=== PATIENT | female | born 1970 | race Caucasian/White ===

== ENCOUNTER 2016-11-27 08:07 | Emergency (ER) | payer BC ==
[2016-11-27 08:28] VITALS: BP 147/114
[2016-11-27] MEDS ORDERED: Haloperidol 5 MG Tab PO ONE (08:40)
[2016-11-27] MEDS ORDERED: LORazepam 1 MG Tab PO ONE (08:40)
--- NOTE | 2016-11-27 09:34 | EDM.PDOCBH ---
ED HPI GENERAL MEDICAL PROBLEM - General Chief Complaint: Behavioral/Psych Stated Complaint: PANIC ATTACK Time Seen by Provider: 11/27/16 08:33 Source of Information: Reports: Patient History Limitations: Reports: No Limitations - History of Present Illness INITIAL COMMENTS - FREE TEXT/NARRATIVE: The patient presents with an anxiety attack. She got up this morning and she was doing good. She had some nightmares through the night. She has a history of nightmares and she will take some benadryl to help her sleep but she did not take any last night. She was getting ready for work when this started. She feels anxious. She is hearing screaming. She is scratching her arms and legs. She is crying. She is not seeing things and she has no thoughts of hurting herself or anyone else. This has never happened to her before. She does have a history of depression and anxiety and she is on celexa 10mg for that. She does not see any one here yet. She just moved here from [place]. Onset: Gradual Duration: Hour(s): Severity: Severe Improves with: Reports: None Worsens with: Reports: None Associated Symptoms: Reports: No Other Symptoms - Related Data Allergies Allergy/AdvReac Type Severity Reaction Status Date / Time No Known Allergies Allergy Verified 11/27/16 08:28 Home Meds: Home Meds Citalopram Hydrobromide [Celexa] 40 mg PO DAILY #30 tablet 11/27/16 [Rx] Citalopram [Celexa] 10 mg PO DAILY 11/27/16 [History] Haloperidol [Haldol] 2 mg PO BEDTIME #5 tab 11/27/16 [Rx] LORazepam [Ativan] 1 mg PO DAILY #5 tablet 11/27/16 [Rx] Past Medical History Musculoskeletal History: Reports: Other (See Below) Other Musculoskeletal History: tarpal tunnel Psychiatric History: Reports: Anxiety, Depression - Past Surgical History GI Surgical History: Reports: Appendectomy, Cholecystectomy Female Surgical History: Reports: Hysterectomy Social & Family History - Tobacco Use Smoking Status *Q: Never Smoker Second Hand Smoke Exposure: No - Caffeine Use Caffeine Use: Reports: None - Recreational Drug Use Recreational Drug Use: No ED ROS GENERAL - Review of Systems Review Of Systems: See Below Constitutional: Reports: No Symptoms HEENT: Reports: No Symptoms Respiratory: Reports: No Symptoms Cardiovascular: Reports: No Symptoms Endocrine: Reports: No Symptoms GI/Abdominal: Reports: No Symptoms : Reports: No Symptoms Musculoskeletal: Reports: No Symptoms Skin: Reports: No Symptoms Neurological: Reports: No Symptoms Psychiatric: Reports: Anxiety ED EXAM, BEHAVIORAL HEALTH - Physical Exam Exam: See Below Exam Limited By: No Limitations General Appearance: Alert, No Apparent Distress Ears: Normal External Exam Nose: Normal Inspection Head: Atraumatic, Normocephalic Neck: Normal Inspection Respiratory/Chest: No Respiratory Distress, Lungs Clear, Normal Breath Sounds Cardiovascular: Regular Rate, Rhythm, No Edema, No Murmur GI/Abdominal: Soft, Non-Tender, No Organomegaly, No Mass Back Exam: Normal Inspection Extremities: Normal Inspection Neurological: Alert, No Motor/Sensory Deficits, Oriented x 3 Psychiatric: Alert, Restless, Tearful COURSE, BEHAVIORAL HEALTH COMP - Course Vital Signs: Last Vital Signs Temp 97.8 F 11/27/16 08:23 Pulse 132 H 11/27/16 08:23 Resp 20 11/27/16 08:23 BP 147/114 H 11/27/16 08:23 Pulse Ox 93 L 11/27/16 08:23 Orders, Labs, Meds: Active Orders 24 hr Category Date Time Status Cardiac Monitoring [RC] . DIRECTED Care 11/27/16 08:39 Active Laboratory Tests 11/27/16 11/27/16 11/27/16 Range/Units 09:25 09:25 09:25 WBC 8.24 (3.98-10.04) K/mm3 RBC 5.29 H (3.98-5.22) M/mm3 Hgb 15.2 (11.2-15.7) gm/L Hct 46.5 H (34.1-44.9) % MCV 87.9 (79.4-94.8) fl MCH 28.7 (25.6-32.2) pg MCHC 32.7 (32.2-35.5) g/dl RDW Std Deviation 42.0 (36.4-46.3) fL Plt Count 215 (182-369) K/mm3 MPV 9.8 (9.4-12.3) fl Neut % (Auto) 68.3 (34.0-71.1) % Lymph % (Auto) 19.5 (19.3-51.7) % [place] % (Auto) 7.3 (4.7-12.5) % Eos % (Auto) 3.8 (0.7-5.8) Baso % (Auto) 0.7 (0.1-1.2) % Neut # (Auto) 5.63 (1.56-6.13) K/mm3 Lymph # (Auto) 1.61 (1.18-3.74) K/mm3 [place] # (Auto) 0.60 H (0.24-0.36) K/mm3 Eos # (Auto) 0.31 (0.04-0.36) K/mm3 Baso # (Auto) 0.06 (0.01-0.08) K/mm3 Sodium 139 (136-145) mEq/L Potassium 3.8 (3.5-5.1) mEq/L Chloride 101 (98-107) mEq/L Carbon Dioxide 32 (21-32) mEq/L Anion Gap 9.8 (5-15) BUN 16 (7-18) mg/dL Creatinine 0.9 (0.55-1.02) mg/dL Est Cr Clr Drug Dosing 75.15 mL/min Estimated GFR (MDRD) > 60 (>60) mL/min BUN/Creatinine Ratio 17.8 (14-18) Glucose 100 (74-106) mg/dL Calcium 9.9 (8.5-10.1) mg/dL Total Bilirubin 0.4 (0.2-1.0) mg/dL AST 18 (15-37) U/L ALT 31 (14-59) U/L Alkaline Phosphatase 94 (46-116) U/L Total Protein 7.7 (6.4-8.2) g/dl Albumin 4.0 (3.4-5.0) g/dl Globulin 3.7 gm/dL Albumin/Globulin Ratio 1.1 (1-2) TSH 3rd Generation 1.863 (0.358-3.74) uIU/mL HCG, Qual Negative (NEGATIVE) Urine Opiates Screen (NEGATIVE) Ur Buprenorphine Scrn (NEGATIVE) Ur Oxycodone Screen (NEGATIVE) Urine Methadone Screen (NEGATIVE) Ur Propoxyphene Screen (NEGATIVE) Ur Barbiturates Screen (NEGATIVE) Ur Tricyclics Screen (NEGATIVE) Ur Phencyclidine Scrn (NEGATIVE) Ur Amphetamine Screen (NEGATIVE) U Methamphetamines Scrn (NEGATIVE) U Benzodiazepines Scrn (NEGATIVE) U Cocaine Metab Screen (NEGATIVE) U Marijuana (THC) Screen (NEGATIVE) Ethyl Alcohol 0.00 (0.00) gm% 11/27/16 Range/Units 09:45 WBC (3.98-10.04) K/mm3 RBC (3.98-5.22) M/mm3 Hgb (11.2-15.7) gm/L Hct (34.1-44.9) % MCV (79.4-94.8) fl MCH (25.6-32.2) pg MCHC (32.2-35.5) g/dl RDW Std Deviation (36.4-46.3) fL Plt Count (182-369) K/mm3 MPV (9.4-12.3) fl Neut % (Auto) (34.0-71.1) % Lymph % (Auto) (19.3-51.7) % [place] % (Auto) (4.7-12.5) % Eos % (Auto) (0.7-5.8) Baso % (Auto) (0.1-1.2) % Neut # (Auto) (1.56-6.13) K/mm3 Lymph # (Auto) (1.18-3.74) K/mm3 [place] # (Auto) (0.24-0.36) K/mm3 Eos # (Auto) (0.04-0.36) K/mm3 Baso # (Auto) (0.01-0.08) K/mm3 Sodium (136-145) mEq/L Potassium (3.5-5.1) mEq/L Chloride (98-107) mEq/L Carbon Dioxide (21-32) mEq/L Anion Gap (5-15) BUN (7-18) mg/dL Creatinine (0.55-1.02) mg/dL Est Cr Clr Drug Dosing mL/min Estimated GFR (MDRD) (>60) mL/min BUN/Creatinine Ratio (14-18) Glucose (74-106) mg/dL Calcium (8.5-10.1) mg/dL Total Bilirubin (0.2-1.0) mg/dL AST (15-37) U/L ALT (14-59) U/L Alkaline Phosphatase (46-116) U/L Total Protein (6.4-8.2) g/dl Albumin (3.4-5.0) g/dl Globulin gm/dL Albumin/Globulin Ratio (1-2) TSH 3rd Generation (0.358-3.74) uIU/mL HCG, Qual (NEGATIVE) Urine Opiates Screen Negative (NEGATIVE) Ur Buprenorphine Scrn Negative (NEGATIVE) Ur Oxycodone Screen Negative (NEGATIVE) Urine Methadone Screen Negative (NEGATIVE) Ur Propoxyphene Screen Negative (NEGATIVE) Ur Barbiturates Screen Negative (NEGATIVE) Ur Tricyclics Screen Negative (NEGATIVE) Ur Phencyclidine Scrn Negative (NEGATIVE) Ur Amphetamine Screen Negative (NEGATIVE) U Methamphetamines Scrn Negative (NEGATIVE) U Benzodiazepines Scrn Negative (NEGATIVE) U Cocaine Metab Screen Negative (NEGATIVE) U Marijuana (THC) Screen Negative (NEGATIVE) Ethyl Alcohol (0.00) gm% Medications Discontinued Medications Generic Name Dose Route Start Last Admin Trade Name Freq PRN Reason Stop Dose Admin Haloperidol 5 mg 11/27/16 08:40 11/27/16 08:48 Haldol PO 11/27/16 08:41 5 mg ONETIME ONE Administration Lorazepam 1 mg 11/27/16 08:40 11/27/16 08:49 Ativan PO 11/27/16 08:41 1 mg ONETIME ONE Administration Re-Assessment/Re-Exam: I ordered haldol 5mg PO and ativan 1mg PO. I will get some labs. She feels much better. Her CBC and CMP look good. Her TSH is normal. Her ETOH and drug screen are negative. I called Dr Doherty our psychiatrist adhesion tester and he recommended to go up with her celexa to 40mg. He also wanted her to be on haldol 2mg daily for 5 days and ativan daily for 5 days. 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 Take the haldol 2mg at night for 5 days. Take ativan 1mg daily for [address] when taking this medication. Please return if you are worse. Follow up with Dr Doherty in 1 week. His number has been provider. - My Orders Last 24 Hours: My Active Orders 11/27/16 08:39 Cardiac Monitoring [RC] . DIRECTED - Assessment/Plan Last 24 Hours: My Active Orders 11/27/16 08:39 Cardiac Monitoring [RC] . DIRECTED
== END 2016-11-27 11:35 | disposition home or self-care (01) ==
LOC: JD.ED 08:07
DX: F43.10 Post-traumatic stress disorder, unspecified (principal); F23 Brief psychotic disorder; F41.9 Anxiety disorder, unspecified; F32.9 Major depressive disorder, single episode, unspecified; Z90.49 Acquired absence of other specified parts of digestive tract; Z79.899 Other long term (current) drug therapy; Z90.710 Acquired absence of both cervix and uterus
CPT/HCPCS: 36415; 80053; 80306; 84443; 84703; 85025; 99284; A9270; G0480; 99283

== ENCOUNTER 2017-05-07 14:05 | Emergency (ER) | payer SELFPAY ==
[2017-05-07 14:20] VITALS: BP 140/105
--- NOTE | 2017-05-07 15:31 | EDM.PDOC ---
ED HPI GENERAL MEDICAL PROBLEM - General Chief Complaint: Chest Pain Stated Complaint: CHEST PAIN Time Seen by Provider: 05/07/17 14:20 Source of Information: Reports: Patient History Limitations: Reports: No Limitations - History of Present Illness INITIAL COMMENTS - FREE TEXT/NARRATIVE: The patient presents with right lower, lateral chest pain that started about 40 minutes prior to arrival. She says is is like a crampy pain. She has some shortness of breath with it. She has no fever or chills now but a few days ago she had some and now she has a dry cough. She says she gets pneumonia easy and she thinks that may be the case. She has some nausea but no vomiting or abdominal pain. She has no history of heart problems. She did not have a gallbladder. Onset: Sudden Duration: Hour(s): (1) Quality: Reports: Other (crampy) Severity: Mild Improves with: Reports: None Worsens with: Reports: None Associated Symptoms: Reports: Chest Pain, Cough, Shortness of Breath. Denies: Confusion, Fever/Chills, Nausea/Vomiting right side under breast/right side and midback Pain Score (Numeric/FACES): 7 - Related Data Allergies Allergy/AdvReac Type Severity Reaction Status Date / Time No Known Allergies Allergy Verified 11/27/16 08:28 Home Meds: Home Meds Venlafaxine [Effexor] 150 mg PO DAILY 05/07/17 [History] Past Medical History Musculoskeletal History: Reports: Other (See Below) Other Musculoskeletal History: carpal tunnel Psychiatric History: Reports: Anxiety, Depression - Past Surgical History GI Surgical History: Reports: Appendectomy, Cholecystectomy Female Surgical History: Reports: Hysterectomy Social & Family History - Family History Family Medical History: Noncontributory - Tobacco Use Smoking Status *Q: Never Smoker Second Hand Smoke Exposure: No - Caffeine Use Caffeine Use: Reports: Coffee, Soda - Recreational Drug Use Recreational Drug Use: No ED ROS GENERAL - Review of Systems Review Of Systems: See Below Constitutional: Reports: No Symptoms HEENT: Reports: No Symptoms Respiratory: Reports: Shortness of Breath Cardiovascular: Reports: Chest Pain Endocrine: Reports: No Symptoms GI/Abdominal: Reports: Nausea. Denies: Abdominal Pain, Vomiting : Reports: No Symptoms Musculoskeletal: Reports: No Symptoms ED EXAM, GENERAL - Physical Exam Exam: See Below Exam Limited By: No Limitations General Appearance: Alert, No Apparent Distress Ears: Normal External Exam Nose: Normal Inspection Head: Atraumatic, Normocephalic Neck: Normal Inspection Respiratory/Chest: No Respiratory Distress, Lungs Clear, Normal Breath Sounds Cardiovascular: Regular Rate, Rhythm, No Edema, No Murmur GI/Abdominal: Soft, Non-Tender, No Organomegaly, No Mass Back Exam: Normal Inspection EKG INTERPRETATION EKG Date: 05/07/17 Time: 14:12 Rhythm: Other (Sinus tachycardia) Rate (Beats/Min): 100 [place]: Normal P-Wave: Present QRS: Normal ST-T: Normal QT: Normal Course - Vital Signs Last Recorded V/S: Last Vital Signs Temp 97.4 F 05/07/17 14:10 Pulse 94 05/07/17 14:10 Resp 20 05/07/17 14:10 BP 140/105 H 05/07/17 14:10 Pulse Ox 94 L 05/07/17 14:10 - Orders/Labs/Meds Orders: Active Orders 24 hr Category Date Time Status EKG Documentation Completion [RC] ASDIRECTED Care 05/07/17 16:56 Active EKG Documentation Completion [RC] STAT Care 05/07/17 14:25 Active EKG 12 Lead [EK] Stat Ther 05/07/17 16:56 Ordered Labs: Laboratory Tests 05/07/17 05/07/17 05/07/17 Range/Units 14:40 14:40 14:40 WBC 9.08 (3.98-10.04) K/mm3 RBC 5.13 (3.98-5.22) M/mm3 Hgb 15.0 (11.2-15.7) gm/L Hct 45.7 H (34.1-44.9) % MCV 89.1 (79.4-94.8) fl MCH 29.2 (25.6-32.2) pg MCHC 32.8 (32.2-35.5) g/dl RDW Std Deviation 44.9 (36.4-46.3) fL Plt Count 223 (182-369) K/mm3 MPV 9.6 (9.4-12.3) fl Neut % (Auto) 62.0 (34.0-71.1) % Lymph % (Auto) 26.3 (19.3-51.7) % [place] % (Auto) 7.6 (4.7-12.5) % Eos % (Auto) 3.0 (0.7-5.8) Baso % (Auto) 0.4 (0.1-1.2) % Neut # (Auto) 5.63 (1.56-6.13) K/mm3 Lymph # (Auto) 2.39 (1.18-3.74) K/mm3 [place] # (Auto) 0.69 H (0.24-0.36) K/mm3 Eos # (Auto) 0.27 (0.04-0.36) K/mm3 Baso # (Auto) 0.04 (0.01-0.08) K/mm3 D-Dimer, Quantitative 0.48 (0.19-0.59) mg/L Sodium 140 (136-145) mEq/L Potassium 3.9 (3.5-5.1) mEq/L Chloride 101 (98-107) mEq/L Carbon Dioxide 30 (21-32) mEq/L Anion Gap 12.9 (5-15) BUN 18 (7-18) mg/dL Creatinine 0.8 (0.55-1.02) mg/dL Est Cr Clr Drug Dosing 83.63 mL/min Estimated GFR (MDRD) > 60 (>60) mL/min BUN/Creatinine Ratio 22.5 H (14-18) Glucose 79 (74-106) mg/dL Calcium 9.6 (8.5-10.1) mg/dL Total Bilirubin 0.2 (0.2-1.0) mg/dL AST 17 (15-37) U/L ALT 33 (14-59) U/L Alkaline Phosphatase 91 (46-116) U/L Troponin I < 0.017 (0.00-0.056) ng/mL C-Reactive Protein 2.3 H* (<1.0) mg/dL Total Protein 8.0 (6.4-8.2) g/dl Albumin 3.8 (3.4-5.0) g/dl Globulin 4.2 gm/dL Albumin/Globulin Ratio 0.9 L (1-2) 05/07/17 Range/Units 17:12 WBC (3.98-10.04) K/mm3 RBC (3.98-5.22) M/mm3 Hgb (11.2-15.7) gm/L Hct (34.1-44.9) % MCV (79.4-94.8) fl MCH (25.6-32.2) pg MCHC (32.2-35.5) g/dl RDW Std Deviation (36.4-46.3) fL Plt Count (182-369) K/mm3 MPV (9.4-12.3) fl Neut % (Auto) (34.0-71.1) % Lymph % (Auto) (19.3-51.7) % [place] % (Auto) (4.7-12.5) % Eos % (Auto) (0.7-5.8) Baso % (Auto) (0.1-1.2) % Neut # (Auto) (1.56-6.13) K/mm3 Lymph # (Auto) (1.18-3.74) K/mm3 [place] # (Auto) (0.24-0.36) K/mm3 Eos # (Auto) (0.04-0.36) K/mm3 Baso # (Auto) (0.01-0.08) K/mm3 D-Dimer, Quantitative (0.19-0.59) mg/L Sodium (136-145) mEq/L Potassium (3.5-5.1) mEq/L Chloride (98-107) mEq/L Carbon Dioxide (21-32) mEq/L Anion Gap (5-15) BUN (7-18) mg/dL Creatinine (0.55-1.02) mg/dL Est Cr Clr Drug Dosing mL/min Estimated GFR (MDRD) (>60) mL/min BUN/Creatinine Ratio (14-18) Glucose (74-106) mg/dL Calcium (8.5-10.1) mg/dL Total Bilirubin (0.2-1.0) mg/dL AST (15-37) U/L ALT (14-59) U/L Alkaline Phosphatase (46-116) U/L Troponin I < 0.017 (0.00-0.056) ng/mL C-Reactive Protein (<1.0) mg/dL Total Protein (6.4-8.2) g/dl Albumin (3.4-5.0) g/dl Globulin gm/dL Albumin/Globulin Ratio (1-2) Meds: Medications Discontinued Medications Generic Name Dose Route Start Last Admin Trade Name Petros PRN Reason Stop Dose Admin Aspirin 324 mg 05/07/17 15:58 05/07/17 16:33 Aspirin PO 05/07/17 15:59 324 mg ONETIME ONE Administration - Re-Assessments/Exams Free Text/Narrative Re-Assessment/Exam: 05/07/17 15:37 I ordered an EKG, CXR, labs and some aspirin. Her EKG shows a sinus tachycardia with no acute changes. Her CXR shows no pneumonia. Her CBC and CMP look good. Her troponin and D-dimer was negative. 05/07/17 17:57 I did a repeat EKG that shows no changes from prior. Her repeat troponin at 3 hours was negative. This appears to be chest wall pain. I will discharge her home. Departure - Departure Time of Disposition: 18:00 Disposition: Home, Self-Care 01 Condition: Good Clinical Impression: Atypical chest pain Referrals: Evy Matthews PA-C [Primary Care Provider] - 1 Week Forms: ED Department Discharge Additional Instructions: Take tylenol or motrin for pain. Please return if you are worse. Follow up with your provider within a week. - My Orders Last 24 Hours: My Active Orders 05/07/17 14:25 EKG Documentation Completion [RC] STAT 05/07/17 16:56 EKG Documentation Completion [RC] ASDIRECTED EKG 12 Lead [EK] Stat - Assessment/Plan Last 24 Hours: My Active Orders 05/07/17 14:25 EKG Documentation Completion [RC] STAT 05/07/17 16:56 EKG Documentation Completion [RC] ASDIRECTED EKG 12 Lead [EK] Stat
[2017-05-07] MEDS ORDERED: Aspirin 81 MG Tab.Chew PO ONE (15:58)
--- NOTE | 2017-05-07 16:00 | CR ---
Chest: Two views of the chest were obtained. Comparison: No prior study. Poor inspiratory effort is seen. Heart size and mediastinum are normal. Lungs are felt to be clear. Bony structures are unremarkable for the patient's age. Surgical clips are seen from prior cholecystectomy. Impression: 1. Limited inspiratory study. Nothing acute is appreciated. Diagnostic code #2
== END 2017-05-07 18:11 | disposition home or self-care (01) ==
LOC: JD.ED 14:05
DX: R07.89 Other chest pain (principal); F32.9 Major depressive disorder, single episode, unspecified; Z79.899 Other long term (current) drug therapy
CPT/HCPCS: 36415; 71046; 80053; 84484; 85025; 85379; 86140; 93005; 99285; A9270; 93010

== ENCOUNTER 2018-12-31 17:06 | Emergency (ER) | payer BC ==
[2018-12-31 17:12] VITALS: BP 172/85; PULSE 94
[2018-12-31] MEDS ORDERED: Sodium Chloride 0.9% 10 ML Syringe FLUSH PRN (17:43)
--- NOTE | 2018-12-31 17:55 | EDM.PDOC ---
ED HPI GENERAL MEDICAL PROBLEM - General Source of Information: Reports: Patient History Limitations: Reports: No Limitations - History of Present Illness Onset: Today, Sudden Duration: Minutes: Associated Symptoms: Reports: Headaches Headache Pain Score (Numeric/FACES): 9 <Peng Pedro - Last Filed: 12/31/18 17:43> - History of Present Illness Location: Reports: Head Quality: Reports: Ache Severity: Moderate Improves with: Reports: None Worsens with: Reports: None Associated Symptoms: Denies: Chest Pain, Cough, Fever/Chills, Nausea/Vomiting, Shortness of Breath <Damien Aldana - Last Filed: 12/31/18 19:18> - General Chief Complaint: Syncope Stated Complaint: [facility] Time Seen by Provider: 12/31/18 17:14 - History of Present Illness INITIAL COMMENTS - FREE TEXT/NARRATIVE: Pt presents to ED today from the dentist's office with complaint of a syncopal episode. Pt has a hx of anxiety, and took an ativan 45 minutes prior to her dentist appointment. Pt was in the dentist chair nearing the end of the procedure when she suddenly lost consciousness. Pt next awoke on the ground and felt very nauseous and had one episode of vomiting. She is unsure of how long she was unconscious. Her complaints upon presentation to ED include fatigue and a headache. Pt has no other complaints at this time. Pt feels that she may have had an anxiety attack during the procedure causing her to pass out. Pt denies personal or family hx of heart problems. No hx of hypertension, diabetes, asthma. She has never had a similar episode in the past. Pt carries history of significant anxiety. (Peng Pedro) - Related Data Allergies Allergy/AdvReac Type Severity Reaction Status Date / Time walnut Allergy Airway Verified 12/31/18 17:13 Tightness Home Meds: Home Meds LORazepam [Ativan] 1 mg PO DAILY PRN 12/31/18 [History] Prazosin HCl [Prazosin] 6 mg PO BEDTIME 12/31/18 [History] Vortioxetine Hydrobromide [Brintellix] 20 mg PO DAILY 12/31/18 [History] traZODone HCl [Trazodone HCl] 100 mg PO BEDTIME 12/31/18 [History] Past Medical History HEENT History: Reports: Impaired Vision Cardiovascular History: Reports: None Respiratory History: Reports: None Gastrointestinal History: Reports: None Genitourinary History: Reports: None 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, Musculoskeletal History: Reports: Other (See Below) Other Musculoskeletal History: carpal tunnel Neurological History: Reports: Concussion, Seizure Psychiatric History: Reports: Anxiety, Depression, PTSD, Other (See Below) Other Psychiatric History: Borderline personality disorder Endocrine/Metabolic History: Reports: Obesity/BMI 30+ Hematologic History: Reports: None Immunologic History: Reports: None Oncologic (Cancer) History: Reports: None Dermatologic History: Reports: None - Infectious Disease History Infectious Disease History: Reports: None - Past Surgical History Head Surgeries/Procedures: Reports: None GI Surgical History: Reports: Appendectomy, Cholecystectomy Female Surgical History: Reports: Hysterectomy Musculoskeletal Surgical History: Reports: Carpal Tunnel Other Musculoskeletal Surgeries/Procedures:: carpal tunnel surgery bilateral hands. <Peng Pedro - Last Filed: 12/31/18 17:43> Social & Family History - Family History Family Medical History: Noncontributory - Tobacco Use Smoking Status *Q: Never Smoker - Caffeine Use Caffeine Use: Reports: Coffee - Recreational Drug Use Recreational Drug Use: No <Peng Pedro - Last Filed: 12/31/18 17:43> ED ROS GENERAL - Review of Systems Review Of Systems: ROS reveals no pertinent complaints other than HPI. <Pneg Pedro - Last Filed: 12/31/18 17:43> - Physical Exam Exam: See Below Exam Limited By: No Limitations General Appearance: Alert, No Apparent Distress Eye Exam: Bilateral Eye: Normal Inspection Ears: Normal External Exam Nose: Normal Inspection Throat/Mouth: Normal Inspection Head Exam: Atraumatic, Normocephalic Neck: Normal Inspection Respiratory/Chest: No Respiratory Distress, Lungs Clear, Normal Breath Sounds, No Accessory Muscle Use Cardiovascular: Normal Peripheral Pulses, Regular Rate, Rhythm, No Edema, No JVD , No Murmur, No Rub GI/Abdominal: Normal Bowel Sounds, Soft, Non-Tender, No Organomegaly Neuro Exam (Abbreviated): Alert, Oriented, CN II-XII Intact, Normal Cognition, No Motor/Sensory Deficits (ds) Extremities: Normal Inspection, Non-Tender, No Pedal Edema Psychiatric: Normal Affect, Normal Mood Skin Exam: Warm, Dry, Intact, Normal Color, No Rash <Peng Pedro - Last Filed: 12/31/18 17:43> EKG INTERPRETATION EKG Date: 12/31/18 Time: 17:54 Rhythm: NSR Rate (Beats/Min): 94 [place]: Normal P-Wave: Present QRS: Normal ST-T: Normal QT: Normal <Damien Aldana A - Last Filed: 12/31/18 19:18> Course <PedroPeng - Last Filed: 12/31/18 17:43> <Damien Aldana - Last Filed: 12/31/18 19:18> - Vital Signs Last Recorded V/S: Last Vital Signs Temp 98.3 F 12/31/18 17:10 Pulse 94 12/31/18 17:10 Resp 16 12/31/18 17:10 BP 172/85 H 12/31/18 17:10 Pulse Ox 92 L 12/31/18 17:10 - Orders/Labs/Meds Orders: Active Orders 24 hr Category Date Time Status Cardiac Monitoring [RC] . DIRECTED Care 12/31/18 17:43 Active EKG Documentation Completion [RC] STAT Care 12/31/18 17:45 Active Peripheral IV Care [RC] . DIRECTED Care 12/31/18 17:45 Active HYDROmorphone [Dilaudid] Med 12/31/18 19:11 Once 0.5 mg IVPUSH ONETIME ONE Sodium Chloride 0.9% [Saline Flush] Med 12/31/18 17:43 Active 10 ml FLUSH ASDIRECTED PRN Peripheral IV Insertion Adult [OM.PC] Stat Oth 12/31/18 17:43 Ordered Medication Orders Sodium Chloride (Saline Flush) 10 ml FLUSH ASDIRECTED PRN PRN Reason: Keep Vein Open Last Admin: 12/31/18 18:03 Dose: 10 ml Labs: Laboratory Tests 12/31/18 12/31/18 Range/Units 18:30 18:30 WBC 7.65 (3.98-10.04) K/mm3 RBC 4.93 (3.98-5.22) M/mm3 Hgb 14.1 (11.2-15.7) gm/L Hct 43.7 (34.1-44.9) % MCV 88.6 (79.4-94.8) fl MCH 28.6 (25.6-32.2) pg MCHC 32.3 (32.2-35.5) g/dl RDW Std Deviation 46.1 (36.4-46.3) fL Plt Count 227 (182-369) K/mm3 MPV 9.4 (9.4-12.3) fl Neut % (Auto) 59.3 (34.0-71.1) % Lymph % (Auto) 23.4 (19.3-51.7) % [place] % (Auto) 11.2 (4.7-12.5) % Eos % (Auto) 5.1 (0.7-5.8) Baso % (Auto) 0.7 (0.1-1.2) % Neut # (Auto) 4.54 (1.56-6.13) K/mm3 Lymph # (Auto) 1.79 (1.18-3.74) K/mm3 [place] # (Auto) 0.86 H (0.24-0.36) K/mm3 Eos # (Auto) 0.39 H (0.04-0.36) K/mm3 Baso # (Auto) 0.05 (0.01-0.08) K/mm3 Sodium 142 (136-145) mEq/L Potassium 3.8 (3.5-5.1) mEq/L Chloride 104 (98-107) mEq/L Carbon Dioxide 29 (21-32) mEq/L Anion Gap 12.8 (5-15) BUN 24 H (7-18) mg/dL Creatinine 0.9 (0.55-1.02) mg/dL Est Cr Clr Drug Dosing 70.78 mL/min Estimated GFR (MDRD) > 60 (>60) mL/min BUN/Creatinine Ratio 26.7 H (14-18) Glucose 87 (74-106) mg/dL Calcium 9.5 (8.5-10.1) mg/dL Total Bilirubin 0.2 (0.2-1.0) mg/dL AST 16 (15-37) U/L ALT 26 (14-59) U/L Alkaline Phosphatase 92 (46-116) U/L Troponin I < 0.017 (0.00-0.056) ng/mL Total Protein 6.9 (6.4-8.2) g/dl Albumin 3.4 (3.4-5.0) g/dl Globulin 3.5 gm/dL Albumin/Globulin Ratio 1.0 (1-2) Meds: Medications Generic Name Dose Route Start Last Admin Trade Name Freq PRN Reason Stop Dose Admin Sodium Chloride 10 ml 12/31/18 17:43 12/31/18 18:03 Saline Flush FLUSH 10 ml ASDIRECTED PRN Administration Keep Vein Open - Re-Assessments/Exams Free Text/Narrative Re-Assessment/Exam: 12/31/18 17:57 Will order labs, EKG, head CT for stroke rule-out. (Peng Pedro) 12/31/18 19:12 I examined the patient myself and I agreed with Peng's assessment and plan. I ordered an EKG, CT of her head and labs. Her EKG shows a NSR with no acute changes. Her CBC and CMP look good. Her troponin is normal. The CT of her head looks good. I will give her some dilaudid for the headache. I feel this may have been the ativan and some anxiety. I will have her follow up with Evy Matthews. 12/31/18 19:16 Her BP did go up but now it is better. (Damien Aldana) Departure <Peng Pedro - Last Filed: 12/31/18 17:43> - Departure Time of Disposition: 19:20 Condition: Good - Discharge Information *PRESCRIPTION DRUG MONITORING PROGRAM REVIEWED*: No *COPY OF PRESCRIPTION DRUG MONITORING REPORT IN PATIENT BALJEET: No <Damien Aldana - Last Filed: 12/31/18 19:18> - Departure Disposition: Home, Self-Care 01 Clinical Impression: Syncope Qualifiers: Syncope type: unspecified Qualified Code(s): R55 - Syncope and collapse Headache Qualifiers: Headache type: unspecified Headache chronicity pattern: acute headache Intractability: not intractable Qualified Code(s): R51 - Headache - Discharge Information Referrals: Evy Matthews PA-C [Primary Care Provider] - 2 Days Forms: ED Department Discharge Additional Instructions: Take your medication as prescribed. Follow up with Evy Matthews within a couple days. Please return if you are worse. - My Orders Last 24 Hours: My Active Orders 12/31/18 17:43 Cardiac Monitoring [RC] . DIRECTED Sodium Chloride 0.9% [Saline Flush] 10 ml FLUSH ASDIRECTED PRN Peripheral IV Insertion Adult [OM.PC] Stat 12/31/18 17:45 EKG Documentation Completion [RC] STAT Peripheral IV Care [RC] . DIRECTED 12/31/18 19:11 HYDROmorphone [Dilaudid] 0.5 mg IVPUSH ONETIME ONE - Assessment/Plan Last 24 Hours: My Active Orders 12/31/18 17:43 Cardiac Monitoring [RC] . DIRECTED Sodium Chloride 0.9% [Saline Flush] 10 ml FLUSH ASDIRECTED PRN Peripheral IV Insertion Adult [OM.PC] Stat 12/31/18 17:45 EKG Documentation Completion [RC] STAT Peripheral IV Care [RC] . DIRECTED 12/31/18 19:11 HYDROmorphone [Dilaudid] 0.5 mg IVPUSH ONETIME ONE
--- NOTE | 2018-12-31 19:02 | CT ---
Head CT Technique: Multiple axial sections through the brain were obtained. Intravenous contrast was not utilized. Comparison: No previous intracranial imaging. Findings: Ventricles along with basal cisterns and sulci over the convexities are within normal limits for the patient's age. No abnormal parenchymal densities are seen. No evidence of intracranial hemorrhage. No midline shift or mass effect is seen. Bone window settings show the visualized paranasal sinuses to show nothing acute. Mastoid sinuses are clear. No acute calvarial abnormality is seen. Impression: 1. Nothing acute is appreciated on noncontrast head CT exam. Diagnostic code #1
[2018-12-31] MEDS ORDERED: HYDROmorphone 0.5 MG/0.5 ML Syringe IVPUSH ONE (19:11)
== END 2018-12-31 19:30 | disposition home or self-care (01) ==
LOC: JD.ED 17:06
DX: R55 Syncope and collapse (principal); R51 Headache; F32.9 Major depressive disorder, single episode, unspecified; F41.9 Anxiety disorder, unspecified; Z91.018 Allergy to other foods; Z79.899 Other long term (current) drug therapy; Z90.49 Acquired absence of other specified parts of digestive tract; Z90.710 Acquired absence of both cervix and uterus; Z68.43 Body mass index [BMI] 50.0-59.9, adult
CPT/HCPCS: 36415; 70450; 80053; 84484; 85025; 93005; 96374; 99284; J1170; 93010; 99283

== ENCOUNTER 2019-06-05 12:40 | Emergency (ER) | payer BC ==
[2019-06-05 12:55] VITALS: BP 157/90; PULSE 81
[2019-06-05] MEDS ORDERED: Ondansetron 4 MG/2 ML SDV IVPUSH ONE (13:11)
[2019-06-05] MEDS ORDERED: Ketorolac 30 MG/ML SDV IVPUSH ONE (13:11)
[2019-06-05] MEDS ORDERED: Sodium Chloride 0.9% 10 ML Syringe FLUSH PRN (13:12)
[2019-06-05] MEDS ORDERED: diphenhydrAMINE 50 MG/ML SDV IVPUSH ONE (13:12)
[2019-06-05] MEDS ORDERED: Sodium Chloride 0.9% 1,000 ML IV SCH (13:15)
--- NOTE | 2019-06-05 13:16 | EDM.PDOC ---
ED HPI GENERAL MEDICAL PROBLEM - General Chief Complaint: Headache Stated Complaint: MIGRAINE Time Seen by Provider: 06/05/19 13:02 Source of Information: Reports: Patient History Limitations: Reports: No Limitations - History of Present Illness INITIAL COMMENTS - FREE TEXT/NARRATIVE: Patient is a 49-year-old female who presents to the ER with complaints of having a migraine headache since Sunday. With this headache, she has been nauseous with no vomiting, her visions been blurred, she does state that she sees flickers of light and has photosensitivity. She also has some ringing in her left ear. She states the pain is located on the left side of her forehead and behind her left ear. Patient states has a history of migraines however it has been probably 20 years since she had one this severe. She gets headaches regularly, however she can usually treat them with Advil or chiropractor adjustment. Patient saw the chiropractor on Sunday for an adjustment, however her symptoms continued after. Denies any recent illnesses. Of note, patient was seen here in December of last year for a headache and a CT scan was done at that time. This was found to be normal. Frontal Headache Pain Score (Numeric/FACES): 7 - Related Data Allergies Allergy/AdvReac Type Severity Reaction Status Date / Time walnut Allergy Airway Verified 06/05/19 12:49 Tightness Home Meds: Home Meds LORazepam [Ativan] 1 mg PO DAILY PRN 12/31/18 [History] Prazosin HCl [Prazosin] 6 mg PO BEDTIME 12/31/18 [History] Vortioxetine Hydrobromide [Brintellix] 20 mg PO DAILY 12/31/18 [History] Ondansetron [Zofran ODT] 4 mg PO Q6H PRN #10 tab.dis 06/05/19 [Rx] Past Medical History HEENT History: Reports: Impaired Vision Cardiovascular History: Reports: None Respiratory History: Reports: None Gastrointestinal History: Reports: None Genitourinary History: Reports: None 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, Musculoskeletal History: Reports: Other (See Below) Other Musculoskeletal History: carpal tunnel Neurological History: Reports: Concussion, Seizure Psychiatric History: Reports: Anxiety, Depression, PTSD, Other (See Below) Other Psychiatric History: Borderline personality disorder Endocrine/Metabolic History: Reports: Obesity/BMI 30+ Hematologic History: Reports: None Immunologic History: Reports: None Oncologic (Cancer) History: Reports: None Dermatologic History: Reports: None - Infectious Disease History Infectious Disease History: Reports: None - Past Surgical History Head Surgeries/Procedures: Reports: None GI Surgical History: Reports: Appendectomy, Cholecystectomy Female Surgical History: Reports: Hysterectomy Musculoskeletal Surgical History: Reports: Carpal Tunnel Other Musculoskeletal Surgeries/Procedures:: carpal tunnel surgery bilateral hands. Social & Family History - Family History Family Medical History: Noncontributory - Tobacco Use Smoking Status *Q: Never Smoker - Caffeine Use Caffeine Use: Reports: Coffee - Recreational Drug Use Recreational Drug Use: No ED ROS GENERAL - Review of Systems Review Of Systems: Comprehensive ROS is negative, except as noted in HPI. - Physical Exam Exam: See Below Exam Limited By: No Limitations General Appearance: Alert, WD/WN, No Apparent Distress Eye Exam: Bilateral Eye: Normal Inspection, PERRL Head Exam: Atraumatic, Normocephalic Respiratory/Chest: No Respiratory Distress, Lungs Clear, Normal Breath Sounds, No Accessory Muscle Use, Chest Non-Tender Cardiovascular: Normal Peripheral Pulses, Regular Rate, Rhythm, No Edema, No Gallop, No JVD, No Murmur, No Rub GI/Abdominal: Normal Bowel Sounds, Soft, Non-Tender, No Organomegaly, No Distention, No Abnormal Bruit, No Mass Neuro Exam (Abbreviated): Alert, Oriented, CN II-XII Intact, Normal Cognition, Normal Gait, Normal Reflexes, No Motor/Sensory Deficits Psychiatric: Normal Affect, Normal Mood Skin Exam: Warm, Dry, Intact, Normal Color, No Rash Course - Vital Signs Last Recorded V/S: Last Vital Signs Temp 98.2 F 06/05/19 12:50 Pulse 81 06/05/19 12:50 Resp 16 06/05/19 12:50 BP 157/90 H 06/05/19 12:50 Pulse Ox 93 L 06/05/19 12:50 - Orders/Labs/Meds Orders: Active Orders 24 hr Category Date Time Status Peripheral IV Care [RC] . DIRECTED Care 06/05/19 13:12 Active Sodium Chloride 0.9% [Normal Saline] 1,000 ml Med 06/05/19 13:15 Active IV ASDIRECTED Sodium Chloride 0.9% [Saline Flush] Med 06/05/19 13:12 Active 10 ml FLUSH ASDIRECTED PRN Peripheral IV Insertion Adult [OM.PC] Stat Oth 06/05/19 13:12 Ordered Medication Orders Sodium Chloride (Normal Saline) 1,000 mls @ 999 mls/hr IV ASDIRECTED JOSE Last Admin: 06/05/19 13:50 Dose: 999 mls/hr Sodium Chloride (Saline Flush) 10 ml FLUSH ASDIRECTED PRN PRN Reason: Keep Vein Open Last Admin: 06/05/19 13:50 Dose: 10 ml Labs: Laboratory Tests 06/05/19 06/05/19 Range/Units 13:48 13:48 WBC 6.98 (3.98-10.04) K/mm3 RBC 5.20 (3.98-5.22) M/mm3 Hgb 15.1 (11.2-15.7) gm/dl Hct 47.4 H (34.1-44.9) % MCV 91.2 (79.4-94.8) fl MCH 29.0 (25.6-32.2) pg MCHC 31.9 L (32.2-35.5) g/dl RDW Std Deviation 47.5 H (36.4-46.3) fL Plt Count 220 (182-369) K/mm3 MPV 9.5 (9.4-12.3) fl Neut % (Auto) 60.9 (34.0-71.1) % Lymph % (Auto) 22.1 (19.3-51.7) % [place] % (Auto) 10.7 (4.7-12.5) % Eos % (Auto) 5.0 (0.7-5.8) Baso % (Auto) 0.6 (0.1-1.2) % Neut # (Auto) 4.25 (1.56-6.13) K/mm3 Lymph # (Auto) 1.54 (1.18-3.74) K/mm3 [place] # (Auto) 0.75 H (0.24-0.36) K/mm3 Eos # (Auto) 0.35 (0.04-0.36) K/mm3 Baso # (Auto) 0.04 (0.01-0.08) K/mm3 Sodium 141 (136-145) mEq/L Potassium 4.2 (3.5-5.1) mEq/L Chloride 103 (98-107) mEq/L Carbon Dioxide 30 (21-32) mEq/L Anion Gap 12.2 (5-15) BUN 22 H (7-18) mg/dL Creatinine 0.9 (0.55-1.02) mg/dL Est Cr Clr Drug Dosing 75.44 mL/min Estimated GFR (MDRD) > 60 (>60) mL/min BUN/Creatinine Ratio 24.4 H (14-18) Glucose 94 (74-106) mg/dL Calcium 9.4 (8.5-10.1) mg/dL Total Bilirubin 0.3 (0.2-1.0) mg/dL AST 17 (15-37) U/L ALT 33 (14-59) U/L Alkaline Phosphatase 96 (46-116) U/L Total Protein 7.2 (6.4-8.2) g/dl Albumin 3.5 (3.4-5.0) g/dl Globulin 3.7 gm/dL Albumin/Globulin Ratio 1.0 (1-2) Meds: Medications Generic Name Dose Route Start Last Admin Trade Name Freq PRN Reason Stop Dose Admin Sodium Chloride 1,000 mls @ 999 mls/hr 06/05/19 13:15 06/05/19 13:50 Normal Saline IV 999 mls/hr ASDIRECTED JOSE Administration Sodium Chloride 10 ml 06/05/19 13:12 06/05/19 13:50 Saline Flush FLUSH 10 ml ASDIRECTED PRN Administration Keep Vein Open Discontinued Medications Generic Name Dose Route Start Last Admin Trade Name Freq PRN Reason Stop Dose Admin Diphenhydramine HCl 25 mg 06/05/19 13:12 06/05/19 13:50 Benadryl IVPUSH 06/05/19 13:13 25 mg ONETIME ONE Administration Hydromorphone HCl 0.5 mg 06/05/19 14:30 06/05/19 15:09 Dilaudid IVPUSH 06/05/19 14:31 0.5 mg ONETIME ONE Administration Ketorolac Tromethamine 30 mg 06/05/19 13:11 06/05/19 13:52 Toradol IVPUSH 06/05/19 13:12 30 mg ONETIME ONE Administration Ondansetron HCl 4 mg 06/05/19 13:11 06/05/19 13:51 Zofran IVPUSH 06/05/19 13:12 4 mg ONETIME ONE Administration - Re-Assessments/Exams Free Text/Narrative Re-Assessment/Exam: 06/05/19 14:31 Patient is having some relief from the medications given thus far. States that her nausea is improved and that her pain has "let up some "but is still present. I will order Dilaudid 0.5 mg IV to be given now. 06/05/19 15:32 Patient states that she is feeling much better after the medications given. I will discharge her home with instructions to rest for the rest of the day. I will send a prescription for Zofran over to [place] [facility]. Discharge instructions as documented. Departure - Departure Time of Disposition: 15:32 Disposition: Home, Self-Care 01 Condition: Fair Clinical Impression: Migraine - Discharge Information *PRESCRIPTION DRUG MONITORING PROGRAM REVIEWED*: No *COPY OF PRESCRIPTION DRUG MONITORING REPORT IN PATIENT BALJEET: No Prescriptions: Ondansetron [Zofran ODT] 4 mg PO Q6H PRN #10 tab.dis PRN Reason: Nausea Instructions: Migraine Headache, [id number] Referrals: Evy Matthews PA-C [Primary Care Provider] - Forms: ED Department Discharge, ED Return to Work/School Form Additional Instructions: You were seen in the emergency department today for a migraine headache. While in the ER you received a liter of IV fluids, Toradol, Zofran, Benadryl, and Dilaudid. You verbalize that this did improve your symptoms. Recommend that you go home and rest in a quiet, dark room. A note has been provided off from work for today and tomorrow for you. You may continue to use Tylenol or ibuprofen as needed for pain. A prescription for Zofran for nausea has been sent to [place] [facility]. Uses medication as prescribed as needed for nausea. Return to the ER as needed. Sepsis Event Note - Evaluation Sepsis Screening Result: No Definite Risk - Focused Exam Vital Signs: Vital Signs Temp Pulse Resp BP Pulse Ox 06/05/19 12:50 98.2 F 81 16 157/90 H 93 L Date Exam was Performed: 06/05/19 Time Exam was Performed: 17:19 - My Orders Last 24 Hours: My Active Orders 06/05/19 13:12 Peripheral IV Care [RC] . DIRECTED Sodium Chloride 0.9% [Saline Flush] 10 ml FLUSH ASDIRECTED PRN Peripheral IV Insertion Adult [OM.PC] Stat 06/05/19 13:15 Sodium Chloride 0.9% [Normal Saline] 1,000 ml IV ASDIRECTED - Assessment/Plan Last 24 Hours: My Active Orders 06/05/19 13:12 Peripheral IV Care [RC] . DIRECTED Sodium Chloride 0.9% [Saline Flush] 10 ml FLUSH ASDIRECTED PRN Peripheral IV Insertion Adult [OM.PC] Stat 06/05/19 13:15 Sodium Chloride 0.9% [Normal Saline] 1,000 ml IV ASDIRECTED
[2019-06-05] MEDS ORDERED: HYDROmorphone 0.5 MG/0.5 ML Syringe IVPUSH ONE (14:30)
== END 2019-06-05 17:08 | disposition home or self-care (01) ==
LOC: JD.ED 12:40
DX: G43.909 Migraine, unspecified, not intractable, without status migrainosus (principal); Z91.018 Allergy to other foods
CPT/HCPCS: 36415; 80053; 85025; 96361; 96374; 96375; 99284; J1170; J1200; J1885; J2405; J7030; 99283

== ENCOUNTER 2019-06-11 11:56 | Inpatient (IN) | payer BC ==
--- NOTE | 2019-06-11 12:14 | PCM.HP.2 ---
H&P History of Present Illness - General Date of Service: 06/11/19 Source of Information: Patient History Limitations: Reports: No Limitations - History of Present Illness Initial Comments - Free Text/Narative: -year-old female presents to the ED with a 3-day history of persistent nausea vomiting and large-volume diarrhea stool loss. States several people at work have been ill ill with similar type illness. She states she did have a high fever at onset of illness on Sunday morning. She has a mild cough. Everything she tries to take in comes right back up even water. She did upper abdominal cramping pain. Large-volume yellow watery slimy stool loss. No hematemesis or blood in the stool. She feels lightheaded dizzy and weak with standing. She does take antidepressants and has been taking them although it is unclear whether they stayed down or went right through her. Headache Pain Score (Numeric/FACES): 7 - Related Data Allergies/Adverse Reactions: Allergies Allergy/AdvReac Type Severity Reaction Status Date / Time walnut Allergy Airway Verified 06/11/19 12:15 Tightness Home Medications: Home Meds LORazepam [Ativan] 1 mg PO DAILY PRN 12/31/18 [History] Prazosin HCl [Prazosin] 6 mg PO BEDTIME 12/31/18 [History] Vortioxetine Hydrobromide [Brintellix] 20 mg PO DAILY 12/31/18 [History] Ondansetron [Zofran ODT] 4 mg PO Q6H PRN #10 tab.dis 06/05/19 [Rx] buPROPion [Wellbutrin SR] 300 mg PO DAILY 06/11/19 [History] Past Medical History HEENT History: Reports: Impaired Vision Cardiovascular History: Reports: None Respiratory History: Reports: None Gastrointestinal History: Reports: None Genitourinary History: Reports: None 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, Musculoskeletal History: Reports: Other (See Below) Other Musculoskeletal History: carpal tunnel Neurological History: Reports: Concussion, Seizure Psychiatric History: Reports: Anxiety, Depression, PTSD, Other (See Below) Other Psychiatric History: Borderline personality disorder Endocrine/Metabolic History: Reports: Obesity/BMI 30+ Hematologic History: Reports: None Immunologic History: Reports: None Oncologic (Cancer) History: Reports: None Dermatologic History: Reports: None - Infectious Disease History Infectious Disease History: Reports: None - Past Surgical History Head Surgeries/Procedures: Reports: None GI Surgical History: Reports: Appendectomy, Cholecystectomy Female Surgical History: Reports: Hysterectomy Musculoskeletal Surgical History: Reports: Carpal Tunnel Other Musculoskeletal Surgeries/Procedures:: carpal tunnel surgery bilateral hands. Social & Family History - Family History Family Medical History: Noncontributory - Caffeine Use Caffeine Use: Reports: Coffee Orders Last 24hrs: Active Orders 24 hr Category Date Time Status Orthostatic Vital Signs [RC] ASDIRECTED Care 06/11/19 12:07 Ordered
[2019-06-11] MEDS ORDERED: Dextrose 5%-Lactated Ringers 1,000 ML IV SCH ×2 (12:15→14:15)
[2019-06-11] MEDS ORDERED: Ketorolac 30 MG/ML SDV IVPUSH SCH (13:00)
--- NOTE | 2019-06-11 13:03 | EDM.PDOC ---
ED HPI GENERAL MEDICAL PROBLEM - General Chief Complaint: Gastrointestinal Problem Stated Complaint: VOMITING/DIARRHEA Time Seen by Provider: 06/11/19 12:16 Source of Information: Reports: Patient History Limitations: Reports: No Limitations - History of Present Illness INITIAL COMMENTS - FREE TEXT/NARRATIVE: 1-year-old female presents to the ED with acute onset of high fever with initial onset of nausea vomiting diarrhea in the early hours of Sunday, June 09. Nothing will stay down even water. Associated diffuse upper abdominal cramping pain if she tries to drink or eat. Diarrhea is loose watery and slimy yellow in color. Without blood. No hematemesis has occurred. Emesis primarily bilious. She feels lightheaded and dizzy with standing. She denies any recent antibiotic usage. Ports many coworkers are sick with flu at [employer]. Influenza and viral gastroenteritis. Has a mild cough. The fever seemed to be quite high initially but not since that time. Cough is nonproductive. Onset: Sudden Onset Date: 06/09/19 Onset Time: 04:00 Duration: Hour(s): Location: Reports: Abdomen (He is epigastric and upper abdominal pain associate with nausea vomiting and diarrhea.) Quality: Reports: Other Severity: Moderate (Distant nausea vomiting day diarrhea) Improves with: Reports: None Worsens with: Reports: Eating Context: Reports: Sick Contact. Denies: Activity, Exercise (To eat or drink.), Lifting, Trauma (Workers), Other Associated Symptoms: Reports: Cough, Fever/Chills (Fever with initial onset of illness. She does not think she has had a fever since.), Headaches, Loss of Appetite, Malaise, Nausea/Vomiting, Weakness, Other (Diarrhea of). 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 (see below) (Tried some Zofran without any luck.) Headache Pain Score (Numeric/FACES): 7 - Related Data Allergies Allergy/AdvReac Type Severity Reaction Status Date / Time walnut Allergy Airway Verified 06/11/19 12:15 Tightness Home Meds: Home Meds LORazepam [Ativan] 1 mg PO DAILY PRN 12/31/18 [History] Prazosin HCl [Prazosin] 6 mg PO BEDTIME 12/31/18 [History] Vortioxetine Hydrobromide [Brintellix] 20 mg PO DAILY 12/31/18 [History] Ondansetron [Zofran ODT] 4 mg PO Q6H PRN #10 tab.dis 06/05/19 [Rx] buPROPion [Wellbutrin SR] 300 mg PO DAILY 06/11/19 [History] Past Medical History HEENT History: Reports: Impaired Vision Cardiovascular History: Reports: None Respiratory History: Reports: None Gastrointestinal History: Reports: None Genitourinary History: Reports: None 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, Musculoskeletal History: Reports: Other (See Below) Other Musculoskeletal History: carpal tunnel Neurological History: Reports: Concussion, Seizure Psychiatric History: Reports: Anxiety, Depression, PTSD, Other (See Below) Other Psychiatric History: Borderline personality disorder Endocrine/Metabolic History: Reports: Obesity/BMI 30+ Hematologic History: Reports: None Immunologic History: Reports: None Oncologic (Cancer) History: Reports: None Dermatologic History: Reports: None - Infectious Disease History Infectious Disease History: Reports: None - Past Surgical History Head Surgeries/Procedures: Reports: None GI Surgical History: Reports: Appendectomy, Cholecystectomy Female Surgical History: Reports: Hysterectomy Musculoskeletal Surgical History: Reports: Carpal Tunnel Other Musculoskeletal Surgeries/Procedures:: carpal tunnel surgery bilateral hands. Social & Family History - Family History Family Medical History: Noncontributory - Tobacco Use Smoking Status *Q: Never Smoker - Caffeine Use Caffeine Use: Reports: Coffee, Soda - Living Situation & Occupation Living situation: Reports: Occupation: Employed ED ROS GENERAL - Review of Systems Review Of Systems: See Below Constitutional: Reports: Fever, Malaise, Weakness, Fatigue, Decreased Appetite, Weight Loss. Denies: Chills (Initial onset of illness.) HEENT: Reports: Throat Pain (Vomiting.) Respiratory: Reports: Cough Cardiovascular: Reports: No Symptoms (Productive cough) Endocrine: Reports: Fatigue GI/Abdominal: Reports: Abdominal Pain (History of present illness.), Diarrhea, Nausea, Vomiting : Reports: Other (Is appreciated that the urine is quite dark in color.) Musculoskeletal: Reports: Muscle Pain Skin: Reports: No Symptoms (Is myalgia.) Neurological: Reports: Dizziness, Headache (Standing), Weakness. Denies: Seizure, Syncope, Tingling, Tremors, Trouble Speaking, Difficulty Walking, Change in Speech, Gait Disturbance Psychiatric: Reports: Depression (Major depression and currently on antidepressant medications.) Hematologic/Lymphatic: Reports: No Symptoms Immunologic: Reports: No Symptoms ED EXAM, GI/ABD - Physical Exam Exam: See Below Exam Limited By: No Limitations General Appearance: Alert, WD/WN, Mild Distress, Other (Peers ill. There is 36.5 with heart rate 105. Respiratory is 18 BP 1 3284 pulse ox 97% on room air) Eyes: Bilateral: Normal Appearance (Clear icterus or blepharal pallor.) Throat/Mouth: Other (Is mildly coated and dry.) Neck: Normal Inspection, Supple, Non-Tender, Full Range of Motion. No: Lymphadenopathy (L), Lymphadenopathy (R) Respiratory/Chest: No Respiratory Distress, Lungs Clear, Normal Breath Sounds, No Accessory Muscle Use Cardiovascular: Normal Peripheral Pulses, Regular Rate, Rhythm, No Edema, No Gallop, No Murmur, No Rub, Tachycardia (Tachycardia at rest) GI/Abdominal Exam: Normal Bowel Sounds, Soft, No Organomegaly, No Abnormal Bruit , No Mass, Pelvis Stable, Tender. No: Rigid, Rebound (And is in the epigastrium. Mildly also in the left lower quadrant.), Mass Back Exam: Normal Inspection, Full Range of Motion, CVA Tenderness (L), CVA Tenderness (R), Paraspinal Tenderness (Paraspinal muscle tenderness particularly adjacent to the lumbar spine.) Extremities: Normal Inspection, Normal Range of Motion, Non-Tender, No Pedal Edema Neurological: Alert, Oriented, CN II-XII Intact, Normal Cognition Psychiatric: Normal Affect, Normal Mood Skin Exam: Warm, Dry, Intact, Normal Color, No Rash Course - Vital Signs Text/Narrative:: Is not feeling any better. I am therefore going to recommend that she stay in the hospital and I discussed the case with Dr. Cullen on-call hospitalist. Patient does have significant bilateral costovertebral angle tenderness suggesting bilateral pyelonephritis. She has a headache and a backache. I am going to give her Zofran 4 mg IV for nausea relief and give her Dilaudid 1 mg IV for headache and back pain relief. Last Recorded V/S: Last Vital Signs Temp 36.5 C 06/11/19 14:00 Pulse 90 06/11/19 14:00 Resp 18 06/11/19 14:00 BP 132/80 06/11/19 14:00 Pulse Ox 92 L 06/11/19 14:00 Orthostatic Blood Pressure [ 114/58 Standing] Orthostatic Blood Pressure [ 124/65 Sitting] Orthostatic Blood Pressure [ 106/72 Supine] - Orders/Labs/Meds Orders: Active Orders 24 hr Category Date Time Status Orthostatic Vital Signs [RC] ASDIRECTED Care 06/11/19 12:07 Active CULTURE STOOL + SHIGATOX [RM] Stat Lab 06/11/19 13:35 Received CULTURE URINE [RM] Stat Lab 06/11/19 15:12 Ordered WBC, STOOL [OP] Stat Lab 06/11/19 13:35 Received Dextrose 5%-Lactated Ringers 1,000 ml Med 06/11/19 12:15 Active IV ASDIRECTED Dextrose 5%-Lactated Ringers 1,000 ml Med 06/11/19 14:15 Active IV ASDIRECTED Ketorolac [Toradol] Med 06/11/19 13:00 Active 30 mg IVPUSH ONETIME Sodium Chloride 0.9% [Normal Saline] 1,000 ml Med 06/11/19 15:15 Active IV ASDIRECTED cefTRIAXone [Rocephin] 2 gm Med 06/11/19 15:15 Active Sodium Chloride 0.9% [Normal Saline] 100 ml IV Q24H Medication Orders Dextrose/Lactated Ringer's (Dextrose 5%-Lactated Ringers) 1,000 mls @ 999 mls/ hr IV ASDIRECTED [facility] Last Admin: 06/11/19 12:40 Dose: 999 mls/hr Dextrose/Lactated Ringer's (Dextrose 5%-Lactated Ringers) 1,000 mls @ 999 mls/ hr IV ASDIRECTED [facility] Last Admin: 06/11/19 14:15 Dose: 999 mls/hr Ceftriaxone Sodium 2 gm/ (Sodium Chloride) 100 mls @ 200 mls/hr IV Q24H [facility] Last Admin: 06/11/19 15:23 Dose: 200 mls/hr Sodium Chloride (Normal Saline) 1,000 mls @ 100 mls/hr IV ASDIRECTED [facility] Last Admin: 06/11/19 15:22 Dose: 100 mls/hr Ketorolac Tromethamine (Toradol) 30 mg IVPUSH ONETIME [facility] Last Admin: 06/11/19 13:20 Dose: 30 mg Labs: Laboratory Tests 06/11/19 06/11/19 06/11/19 Range/Units 12:30 12:30 12:30 WBC 10.05 H (3.98-10.04) K/mm3 RBC 5.66 H (3.98-5.22) M/mm3 Hgb 16.4 H (11.2-15.7) gm/dl Hct 50.7 H (34.1-44.9) % MCV 89.6 (79.4-94.8) fl MCH 29.0 (25.6-32.2) pg MCHC 32.3 (32.2-35.5) g/dl RDW Std Deviation 47.3 H (36.4-46.3) fL Plt Count 177 L (182-369) K/mm3 MPV 9.6 (9.4-12.3) fl Neut % (Auto) 84.9 H (34.0-71.1) % Lymph % (Auto) 9.8 L (19.3-51.7) % [place] % (Auto) 4.3 L (4.7-12.5) % Eos % (Auto) 0.3 L (0.7-5.8) Baso % (Auto) 0.2 (0.1-1.2) % Neut # (Auto) 8.54 H (1.56-6.13) K/mm3 Lymph # (Auto) 0.98 L (1.18-3.74) K/mm3 [place] # (Auto) 0.43 H (0.24-0.36) K/mm3 Eos # (Auto) 0.03 L (0.04-0.36) K/mm3 Baso # (Auto) 0.02 (0.01-0.08) K/mm3 Sodium 141 (136-145) mEq/L Potassium 3.7 (3.5-5.1) mEq/L Chloride 103 (98-107) mEq/L Carbon Dioxide 27 (21-32) mEq/L Anion Gap 14.7 (5-15) BUN 15 (7-18) mg/dL Creatinine 1.1 H (0.55-1.02) mg/dL Est Cr Clr Drug Dosing 57.28 mL/min Estimated GFR (MDRD) 53 (>60) mL/min BUN/Creatinine Ratio 13.6 L (14-18) Glucose 103 (74-106) mg/dL Serum Osmolality 295 (280-300) mosm/kg Lactic Acid 0.7 (0.4-2.0) mmol/L Calcium 9.2 (8.5-10.1) mg/dL Magnesium 2.1 (1.8-2.4) mg/dl Total Bilirubin 0.4 (0.2-1.0) mg/dL AST 15 (15-37) U/L ALT 25 (14-59) U/L Alkaline Phosphatase 102 (46-116) U/L C-Reactive Protein 29.8 H* (<1.0) mg/dL Total Protein 7.7 (6.4-8.2) g/dl Albumin 3.4 (3.4-5.0) g/dl Globulin 4.3 gm/dL Albumin/Globulin Ratio 0.8 L (1-2) Lipase 89 (73-393) U/L Urine Color (Yellow) Urine Appearance (Clear) Urine pH (5.0-8.0) Ur Specific [place] (1.005-1.030) Urine Protein (Negative) Urine Glucose (UA) (Negative) Urine Ketones (Negative) Urine Occult Blood (Negative) Urine Nitrite (Negative) Urine Bilirubin (Negative) Urine Urobilinogen (0.2-1.0) Ur Leukocyte Esterase (Negative) U Hyaline Cast (Auto) (0-5) /lpf Urine RBC (0-5) /hpf Urine WBC (0-5) /hpf Ur Squamous Epith Cells (0-5) /hpf Urine Bacteria (FEW) /hpf Urine Mucus (FEW) /hpf Urine Yeast (NOT SEEN) Ketones (0.0-0.3) mM 06/11/19 06/11/19 Range/Units 12:30 13:10 WBC (3.98-10.04) K/mm3 RBC (3.98-5.22) M/mm3 Hgb (11.2-15.7) gm/dl Hct (34.1-44.9) % MCV (79.4-94.8) fl MCH (25.6-32.2) pg MCHC (32.2-35.5) g/dl RDW Std Deviation (36.4-46.3) fL Plt Count (182-369) K/mm3 MPV (9.4-12.3) fl Neut % (Auto) (34.0-71.1) % Lymph % (Auto) (19.3-51.7) % [place] % (Auto) (4.7-12.5) % Eos % (Auto) (0.7-5.8) Baso % (Auto) (0.1-1.2) % Neut # (Auto) (1.56-6.13) K/mm3 Lymph # (Auto) (1.18-3.74) K/mm3 [place] # (Auto) (0.24-0.36) K/mm3 Eos # (Auto) (0.04-0.36) K/mm3 Baso # (Auto) (0.01-0.08) K/mm3 Sodium (136-145) mEq/L Potassium (3.5-5.1) mEq/L Chloride (98-107) mEq/L Carbon Dioxide (21-32) mEq/L Anion Gap (5-15) BUN (7-18) mg/dL Creatinine (0.55-1.02) mg/dL Est Cr Clr Drug Dosing mL/min Estimated GFR (MDRD) (>60) mL/min BUN/Creatinine Ratio (14-18) Glucose (74-106) mg/dL Serum Osmolality (280-300) mosm/kg Lactic Acid (0.4-2.0) mmol/L Calcium (8.5-10.1) mg/dL Magnesium (1.8-2.4) mg/dl Total Bilirubin (0.2-1.0) mg/dL AST (15-37) U/L ALT (14-59) U/L Alkaline Phosphatase (46-116) U/L C-Reactive Protein (<1.0) mg/dL Total Protein (6.4-8.2) g/dl Albumin (3.4-5.0) g/dl Globulin gm/dL Albumin/Globulin Ratio (1-2) Lipase (73-393) U/L Urine Color [place] H (Yellow) Urine Appearance Cloudy H (Clear) Urine pH 6.5 (5.0-8.0) Ur Specific [place] > or = 1.030 (1.005-1.030) Urine Protein 3+ H (Negative) Urine Glucose (UA) Negative (Negative) Urine Ketones Trace H (Negative) Urine Occult Blood 3+ H (Negative) Urine Nitrite Negative (Negative) Urine Bilirubin 1+ H (Negative) Urine Urobilinogen 0.2 (0.2-1.0) Ur Leukocyte Esterase Trace H (Negative) U Hyaline Cast (Auto) 0-5 (0-5) /lpf Urine RBC 30-40 H (0-5) /hpf Urine WBC 40-50 H (0-5) /hpf Ur Squamous Epith Cells 10-20 H (0-5) /hpf Urine Bacteria Many H (FEW) /hpf Urine Mucus Few (FEW) /hpf Urine Yeast Few H (NOT SEEN) Ketones 0.40 (0.0-0.3) mM Meds: Medications Generic Name Dose Route Start Last Admin Trade Name Freq PRN Reason Stop Dose Admin Dextrose/Lactated Ringer's 1,000 mls @ 999 mls/hr 06/11/19 12:15 06/11/19 12: 40 Dextrose 5%-Lactated Ringers IV 999 mls/hr ASDIRECTED JOSE Administration Dextrose/Lactated Ringer's 1,000 mls @ 999 mls/hr 06/11/19 14:15 06/11/19 14: 15 Dextrose 5%-Lactated Ringers IV 999 mls/hr ASDIRECTED JOSE Administration Ceftriaxone Sodium 2 gm/ 100 mls @ 200 mls/hr 06/11/19 15:15 06/11/19 15:23 Sodium Chloride IV 200 mls/hr Q24H JOSE Administration Sodium Chloride 1,000 mls @ 100 mls/hr 06/11/19 15:15 06/11/19 15:22 Normal Saline IV 100 mls/hr ASDIRECTED JOSE Administration Ketorolac Tromethamine 30 mg 06/11/19 13:00 06/11/19 13:20 Toradol IVPUSH 30 mg ONETIME JOSE Administration Discontinued Medications Generic Name Dose Route Start Last Admin Trade Name Freq PRN Reason Stop Dose Admin Hydromorphone HCl 0.5 mg 06/11/19 14:07 06/11/19 14:10 Dilaudid IVPUSH 06/11/19 14:08 0.5 mg ONETIME ONE Administration Metoclopramide HCl 7.5 mg 06/11/19 13:07 06/11/19 13:22 Reglan IVPUSH 06/11/19 13:08 7.5 mg ONETIME ONE Administration - Radiology Interpretation Free Text/Narrative:: 49-year-old female presents to the ED with acute onset of high fever and then development of nausea vomiting and diarrhea in the wee hours of Sunday, June 09. The nausea vomiting and diarrhea has persisted. Even drinking water causes increased abdominal cramping pain and vomiting. He is lightheaded and dizzy. Orthostatic BPs to be done. She does appear to be mildly dehydrated. she complains of a headache at present. Plan IV D5 LR at open. Reglan 10 mg IV with Toradol 30 mg IV for headache and nausea relief. Stool for culture and white cell count if it becomes available. Routine labs to be done to assess degree of dehydration. - Re-Assessments/Exams Free Text/Narrative Re-Assessment/Exam: 06/11/19 13:19 Labs reveal a white count of 10.05. Auto differential shows 85% neutrophils. Hemoglobin is 16.4 with hematocrit of 50.7 indicating some degree of hemoconcentration. Platelet count is 177,000. It was 141 with potassium of 3.7. Chloride is 103 with bicarb is 27. Anion gap is 14.7 BUN is 15. Creatinine is 1.1 with a eGFR 53. Glucose is 103. Serum osmolality is pending. Lactic acid 0.7. Calcium is 9.2 with a magnesium of 2.1. Liver function is normal. Total protein is 7.7 with an albumin fraction of 3.4 lipase is normal 06/11/19 14:08 influenza screen is negative. Patient is still suffering a significant headache. Will give Dilaudid 0.5 mg IV. We will also run a second liter of IV fluids. 06/11/19 15:15 She did keep down a little bit of Gatorade without any nausea or vomiting. This came back strongly positive for an infective process and a urine culture was ordered. I will also start her on Rocephin 2 g IV at this time. Of note the urinalysis could have been contaminated because she is having diarrhea. We would account for the high onset fever chills initially with persistent nausea and vomiting. Her CRP is also markedly elevated at 30 strongly suggesting a bacterial infection. Is completed 2 L of IV fluid. She will have normal saline at 100 mils per hour for maintenance dose at this time. I suspect she may require admission to the hospital. Departure - Departure Time of Disposition: 16:13 Disposition: Admitted As Inpatient 65 Condition: Fair Clinical Impression: Pyelonephritis, Intractable nausea and vomiting, Gastroenteritis Diarrhea Qualifiers: Diarrhea type: presumed infectious Qualified Code(s): R19.7 - Diarrhea, unspecified - Discharge Information *PRESCRIPTION DRUG MONITORING PROGRAM REVIEWED*: Not Applicable *COPY OF PRESCRIPTION DRUG MONITORING REPORT IN PATIENT BALJEET: Not Applicable Referrals: Evy Matthews PA-C [Primary Care Provider] - Forms: ED Department Discharge Sepsis Event Note - Evaluation Sepsis Screening Result: Possible Sepsis Risk - Focused Exam Vital Signs: Vital Signs Temp Pulse Resp BP Pulse Ox 06/11/19 14:00 36.5 C 90 18 132/80 92 L 06/11/19 12:07 36.5 C 105 H 18 132/84 97 Date Exam was Performed: 06/11/19 Time Exam was Performed: 16:04 - My Orders Last 24 Hours: My Active Orders 06/11/19 12:07 Orthostatic Vital Signs [RC] ASDIRECTED 06/11/19 12:15 Dextrose 5%-Lactated Ringers 1,000 ml IV ASDIRECTED 06/11/19 13:00 Ketorolac [Toradol] 30 mg IVPUSH ONETIME 06/11/19 13:35 CULTURE STOOL + SHIGATOX [RM] Stat WBC, STOOL [OP] Stat 06/11/19 14:15 Dextrose 5%-Lactated Ringers 1,000 ml IV ASDIRECTED 06/11/19 15:12 CULTURE URINE [RM] Stat 06/11/19 15:15 Sodium Chloride 0.9% [Normal Saline] 1,000 ml IV ASDIRECTED cefTRIAXone [Rocephin] 2 gm Sodium Chloride 0.9% [Normal Saline] 100 ml IV Q24H - Assessment/Plan Last 24 Hours: My Active Orders 06/11/19 12:07 Orthostatic Vital Signs [RC] ASDIRECTED 06/11/19 12:15 Dextrose 5%-Lactated Ringers 1,000 ml IV ASDIRECTED 06/11/19 13:00 Ketorolac [Toradol] 30 mg IVPUSH ONETIME 06/11/19 13:35 CULTURE STOOL + SHIGATOX [RM] Stat WBC, STOOL [OP] Stat 06/11/19 14:15 Dextrose 5%-Lactated Ringers 1,000 ml IV ASDIRECTED 06/11/19 15:12 CULTURE URINE [RM] Stat 06/11/19 15:15 Sodium Chloride 0.9% [Normal Saline] 1,000 ml IV ASDIRECTED cefTRIAXone [Rocephin] 2 gm Sodium Chloride 0.9% [Normal Saline] 100 ml IV Q24H
[2019-06-11] MEDS ORDERED: Metoclopramide 10 MG/2 ML SDV IVPUSH ONE (13:07)
[2019-06-11] MEDS ORDERED: HYDROmorphone 0.5 MG/0.5 ML Syringe IVPUSH ONE (14:07)
[2019-06-11] MEDS ORDERED: Sodium Chloride 0.9% 1,000 ML IV SCH (15:15)
[2019-06-11] MEDS: cefTRIAXone 2 GM in Sodium Chloride 0.9% 100 ML IV SCH (15:23)
[2019-06-11] MEDS ORDERED: HYDROmorphone 1 MG/ML Syringe IVPUSH ONE (16:11)
[2019-06-11] MEDS ORDERED: Ondansetron 4 MG/2 ML SDV IVPUSH ONE (16:11)
[2019-06-11] MEDS ORDERED: Iopamidol 612 MG/ML 100 ML Bottle IVPUSH ONE (18:29)
--- NOTE | 2019-06-11 19:07 | CT ---
CT abdomen and pelvis Technique: Multiple axial sections were obtained from above the dome of the diaphragm inferiorly through the pubic symphysis. Intravenous contrast was given. No oral contrast was utilized. Delayed images were also obtained through the abdomen and pelvis. Comparison: No prior abdominal imaging. Findings: Visualized lung bases shows slight atelectasis posteriorly. Liver shows fatty infiltration without focal abnormality. Spleen appears within normal limits. Surgical clips are seen from prior cholecystectomy. Adrenal glands show no nodule. Pancreas is within normal limits. Surgical clips are seen from prior cholecystectomy. Kidneys show symmetric contrast enhancement. No hydronephrosis or mass is seen. Delayed images shows a small amount of contrast within the bladder. No pelvic mass or adenopathy is seen. Aorta shows no aneurysm. No retroperitoneal adenopathy or mesenteric abnormalities are seen. Bowel wall edema and mild surrounding inflammatory change is seen within the right colon. Bowel wall thickening is seen within portions of the descending colon as well as within the sigmoid. Fluid is noted within the rectosigmoid region and within the left colon. These findings are felt compatible with a nonspecific colitis. Appendix not visualized. No free fluid or other inflammatory change is seen. Impression: 1. Abnormal colon as described above most likely representing a nonspecific colitis. 2. Other nonacute findings as noted above. Diagnostic code #3 Study was dictated in [place] [employer] Time
[2019-06-11 19:27] LABS: HEMOGLOBIN A1C 5.9 % (4.50-6.20)
[2019-06-11] MEDS ORDERED: Acetaminophen 325 MG Tab PO PRN (20:45)
[2019-06-11] MEDS ORDERED: Lactated Ringers 1,000 ML IV ONE (20:45)
--- NOTE | 2019-06-11 20:45 | PCM.HP.2 ---
H&P History of Present Illness - General Date of Service: 06/11/19 Admit Problem/Dx: Admission Diagnosis/Problem Admission Diagnosis/Problem Pyelonephritis - History of Present Illness Initial Comments - Free Text/Narative: This is a 49 year old female with past medical history of migraines, bipolar disease, anxiety and depression who comes to the ED complaining of worsening nausea, vomiting, diarrhea and inability to tolerate PO intake for 2 days. As per patient 2 days ago she was at work when she suddenly developed chills and aches around 11AM and approximately 3 hours later she started vomiting and having diarrhea episodes as well as unquantified fever. Patient states she has been having constant BMs, described as watery, non bloody or mucus, as well as inability to keep anything down. She associates these symptoms to a crampy left flank and back pain that started on Sunday graded at a 8/10 at its highes intensity, improved with changing positing especially with standing and bending over and worsened by laying flat. She attempted Tylenol and Advil for this which brought pain down to a tolerable 6/10 Headache Pain Score (Numeric/FACES): 7 - Related Data Allergies/Adverse Reactions: Allergies Allergy/AdvReac Type Severity Reaction Status Date / Time walnut Allergy Airway Verified 06/11/19 20:37 Tightness Home Medications: Home Meds LORazepam [Ativan] 1 mg PO DAILY PRN 12/31/18 [History] Prazosin HCl [Prazosin] 6 mg PO BEDTIME 12/31/18 [History] Vortioxetine Hydrobromide [Brintellix] 20 mg PO DAILY 12/31/18 [History] Ondansetron [Zofran ODT] 4 mg PO Q6H PRN #10 tab.dis 06/05/19 [Rx] buPROPion [Wellbutrin SR] 300 mg PO DAILY 06/11/19 [History] Past Medical History HEENT History: Reports: Impaired Vision Other HEENT History: wears glasses Cardiovascular History: Reports: None Respiratory History: Reports: Bronchitis, Recurrent, Pneumonia, Recurrent Gastrointestinal History: Reports: Colon Polyp, GERD, Hemorrhoids Genitourinary History: Reports: None, Pyelonephritis, Urinary Incontinence SPLITTER HEAD History: Reports: Endometriosis, Musculoskeletal History: Reports: Other (See Below) Other Musculoskeletal History: carpal tunnel Neurological History: Reports: Concussion, Headaches, Chronic, Migraines, Seizure, Other (See Below) Other Neuro History: last seizure in 2011 Psychiatric History: Reports: Anxiety, Depression, Eating Disorders, Mood Swings , Panic Attack, PTSD, Suicidal Ideation, Other (See Below) Other Psychiatric History: Borderline personality disorder Endocrine/Metabolic History: Reports: Obesity/BMI 30+ Hematologic History: Reports: None Immunologic History: Reports: None Oncologic (Cancer) History: Reports: None Dermatologic History: Reports: None - Infectious Disease History Infectious Disease History: Reports: Chicken Pox, Influenza - Past Surgical History Head Surgeries/Procedures: Reports: None Respiratory Surgical History: Reports: None GI Surgical History: Reports: Appendectomy, Cholecystectomy Female Surgical History: Reports: Hysterectomy Endocrine Surgical History: Reports: None Neurological Surgical History: Reports: None Musculoskeletal Surgical History: Reports: Carpal Tunnel Other Musculoskeletal Surgeries/Procedures:: carpal tunnel surgery bilateral hands. Social & Family History - Family History Family Medical History: Noncontributory - Tobacco Use Smoking Status *Q: Never Smoker - Caffeine Use Caffeine Use: Reports: Coffee, Energy Drinks, Tea Other Caffeine Use: one cup coffee every other day, V8 energy drink with green tea on the opposite days. - Recreational Drug Use Recreational Drug Use: No - Living Situation & Occupation Living situation: Reports: Occupation: Employed H&P Review of Systems - Review of Systems: Review Of Systems: See Below General: Reports: Fever, Chills, Malaise, Diaphoresis. Denies: Weakness, Fatigue, Night Sweats, Decreased Appetite HEENT: Denies: Rhinitis, Post Nasal Drip, Sinus Congestion, Sore Throat, Vertigo Pulmonary: Denies: Shortness of Breath, Wheezing, Pleuritic Chest Pain, Cough, Sputum Cardiovascular: Denies: Chest Pain, Palpitations, Dyspnea on Exertion, Orthopnea , PND, Edema, Lightheadedness, Syncope Gastrointestinal: Reports: Anorexia, Diarrhea, Decreased Appetite, Nausea, Vomiting. Denies: Abdominal Pain, Black Stool, Bloody Stool, Constipation, Difficulty Swallowing, Distension, Flatus, Hematemesis, Hematochezia, Melena, Mucous in Stool, Stool Incontinence Genitourinary: Reports: Dysuria, Burning, Pain, Flank Pain, Other (foul smelling urine). Denies: Frequency, Urgency, Incontinence, Hematuria, Retention , Discharge Musculoskeletal: Reports: Back Pain. Denies: Joint Pain, Joint Swelling, Muscle Pain, Muscle Stiffness Skin: Denies: Cyanosis, Jaundice, Mottled, Pallor, Diaphoresis Psychiatric: Reports: Depression, Anxiety. Denies: Confusion, Mood Lability Neurological: Reports: Headache. Denies: Confusion, Dizziness, Numbness, Paresthesia Hematologic/Lymphatic: Denies: Anemia, Easy Bleeding, Easy Bruising Exam - Exam Exam: See Below - Vital Signs Vital Signs: Last Vital Signs Temp 97.7 F 06/11/19 16:26 Pulse 90 06/11/19 16:26 Resp 16 06/11/19 16:26 BP 138/82 06/11/19 16:26 Pulse Ox 91 L 06/11/19 16:26 Orthostatic Blood Pressure [ 114/58 Standing] Orthostatic Blood Pressure [ 124/65 Sitting] Orthostatic Blood Pressure [ 106/72 Supine] Weight: 148.461 kg - Exam General: Alert, Oriented, Moderate Distress HEENT: Conjunctiva Clear, EACs Clear, EOMI, Hearing Intact, Mucosa Moist & [place] , Nares Patent Neck: Supple, Trachea Midline, +2 Carotid Pulse wo Bruit, Full Range of Motion Lungs: Clear to Auscultation, Normal Respiratory Effort. No: Crackles, Rales, Rhonchi, Wheezing Cardiovascular: Regular Rate, Regular Rhythm. No: Systolic Murmur, Diastolic Murmur, Rubs, Gallop/S3, Gallop/S4 GI/Abdominal Exam: Soft, Non-Tender. No: Distended, Guarding, Rigid, Rebound Back Exam: CVA Tenderness (L) (more pronounced), CVA Tenderness (R) Extremities: Normal Inspection, Normal Capillary Refill, Pedal Edema Psychiatric: Alert, Depressed (affect) - Patient Data Result Diagrams: 06/11/19 12:30 06/11/19 12:30 Sepsis Event Note - Evaluation Sepsis Screening Result: No Definite Risk - Focused Exam Vital Signs: Vital Signs Temp Pulse Resp BP Pulse Ox 06/11/19 16:26 97.7 F 90 16 138/82 91 L 06/11/19 14:00 97.7 F 90 18 132/80 92 L 06/11/19 12:07 97.7 F 105 H 18 132/84 97 Date Exam was Performed: 06/12/19 Time Exam was Performed: 01:05 *Q Meaningful Use (ADM) - VTE Risk Assess *Q Each Risk Factor Represents 1 Point: Age 41 - 59 years, Obesity ( BMI > 25 kg/m2 ) Total Score 1 Point Risk Factors: 2 Each Risk Factor Represents 2 Points: None Total Score 2 Point Risk Factors: 0 Each Risk Factor Represents 3 Points: None Total Score 3 Point Risk Factors: 0 Each Risk Factor Represents 5 Points: None Total Score 5 Point Risk Factors: 0 Venous Thromboembolism Risk Factor Score *Q: 2 - Problem List (1) Pyelonephritis SNOMED Code(s): 58567297 ICD Code: N12 - TUBULO-INTERSTITIAL NEPHRITIS, NOT SPCF ACUTE OR CHRONIC Status: Acute Current Visit: Yes (2) Bipolar disorder SNOMED Code(s): 93435397 ICD Code: F31.9 - BIPOLAR DISORDER, UNSPECIFIED Status: Acute Current Visit: Yes (3) Anxiety SNOMED Code(s): 52745865 ICD Code: F41.9 - ANXIETY DISORDER, UNSPECIFIED Status: Acute Current Visit: Yes (4) Depression SNOMED Code(s): 54411868 ICD Code: F32.9 - MAJOR DEPRESSIVE DISORDER, SINGLE EPISODE, UNSPECIFIED Status: Acute Current Visit: Yes (5) Seizure disorder SNOMED Code(s): 207304818 ICD Code: G40.909 - EPILEPSY, UNSP, NOT INTRACTABLE, WITHOUT STATUS EPILEPTICUS Status: Acute Current Visit: Yes (6) Chronic migraine SNOMED Code(s): 480414057 ICD Code: G43.709 - CHRONIC MIGRAINE W/O AURA, NOT INTRACTABLE, W/O STAT MIGR Status: Acute Current Visit: Yes (7) Intractable nausea and vomiting SNOMED Code(s): 274478200 ICD Code: R11.2 - NAUSEA WITH VOMITING, UNSPECIFIED Status: Acute Current Visit: Yes (8) Headache SNOMED Code(s): 19231968 ICD Code: R51 - HEADACHE Status: Acute Current Visit: No Qualifiers: Headache type: unspecified Headache chronicity pattern: acute headache Intractability: not intractable Qualified Code(s): R51 - Headache (9) PTSD (post-traumatic stress disorder) SNOMED Code(s): 08426011 ICD Code: F43.10 - POST-TRAUMATIC STRESS DISORDER, UNSPECIFIED Status: Acute Current Visit: No (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 Status: Acute Current Visit: Yes Problem List Initiated/Reviewed/Updated: Yes Assessment/Plan Comment:: Pyelonephritis Intractable nausea and vomiting Worsening flank pain since Sunday but with urinary symptoms for about 1 week Pathologic UA + Left CVA tenderness Afebrile but tachycardic on admission with leukocytosis Normal lactic acid PLAN - Start ceftriaxone - Monitor temperature, if febrile blood cultures - Strain urine - HbA1c - NPO with advancement of diet as tolerated - PRN zofran - Pain control - Monitor for signs of sepsis Bipolar disorder Anxiety Depression Nightmare disorder PTSD Last psychiatric admission for suicidal ideation in summer 2018 Denies current suicidal or homicidal ideation Denies hallucinations On Trintellix, Wellbutrin and prazosin PLAN - Continue home medications Chronic migraine No abortive or long acting therapies at home PLAN - As needed Tylenol or ibuprofen PROPHYLAXIS DVT- Lovenox GI-not indicated CODE STATUS: FULL CODE DISPOSITION: Patient will be admitted to the medical floor for IV antibiotic therapy as well as pain control with monitorization for fever. - Mortality Measure Prognosis:: Good
[2019-06-11] MEDS ORDERED: Ketorolac 30 MG/ML SDV IV PRN (20:59)
[2019-06-11] MEDS ORDERED: Ondansetron 4 MG/2 ML SDV IV PRN (20:59)
[2019-06-11] MEDS ORDERED: Morphine 2 MG/ML Syringe IVPUSH PRN (20:59)
[2019-06-11] MEDS ORDERED: Ondansetron 4 MG Tab.DIS PO PRN (20:59)
[2019-06-11] MEDS: Acetaminophen 325 MG Tab PO PRN (21:16)
[2019-06-11] MEDS: Prazosin 1 MG Cap PO SCH (22:39)
[2019-06-11] MEDS: LORazepam 1 MG Tab PO PRN (22:42)
[2019-06-11] MEDS: Lactated Ringers 1,000 ML IV SCH (23:32)
[2019-06-12] MEDS: Lactated Ringers 1,000 ML IV SCH ×2 (03:24→08:29)
[2019-06-12] MEDS: Phenazopyridine 95 MG Tab PO SCH ×3 (08:21→18:05)
[2019-06-12] MEDS: Acetaminophen 325 MG Tab PO PRN ×4 (08:26→22:43)
[2019-06-12] MEDS ORDERED: VORTIOXETINE HYDROBROMIDE 20 MG PO SCH (09:00)
[2019-06-12] MEDS: buPROPion 150 MG Tab.ER PO SCH (09:12)
[2019-06-12] MEDS ORDERED: Magnesium Sulfate/Water 4 GM in Premix Bag 1 BAG IV ONE (10:39)
[2019-06-12] MEDS: Simethicone 80 MG Tab.Chew PO PRN ×2 (14:42→19:40)
[2019-06-12] MEDS: cefTRIAXone 2 GM in Sodium Chloride 0.9% 100 ML IV SCH (15:07)
[2019-06-12] MEDS: VORTIOXETINE HYDROBROMIDE 20 MG PO SCH (18:11)
[2019-06-12] MEDS: Prazosin 1 MG Cap PO SCH (19:36)
[2019-06-12] MEDS: LORazepam 1 MG Tab PO PRN (19:39)
[2019-06-12] MEDS: Ibuprofen 400 MG Tab PO PRN (19:40)
--- NOTE | 2019-06-12 21:40 | PCM.PN ---
- General Info Date of Service: 06/12/19 - Patient Data Vitals - Most Recent: Last Vital Signs Temp 98.2 F 06/12/19 16:43 Pulse 84 06/12/19 16:06 Resp 16 06/12/19 16:06 BP 154/92 H 06/12/19 19:36 Pulse Ox 90 L 06/12/19 16:06 Orthostatic Blood Pressure [ 114/58 Standing] Orthostatic Blood Pressure [ 124/65 Sitting] Orthostatic Blood Pressure [ 106/72 Supine] Weight - Most Recent: 150.457 kg I&O - Last 24 Hours: Intake & Output 06/12/19 06/12/19 06/12/19 06:59 14:59 22:59 Intake Total 2992 320 2358 Output Total 700 1200 Balance 2292 320 1158 Lab Results Last 24 Hours: Laboratory Results - last 24 hr 06/12/19 06/12/19 Range/Units 05:32 05:32 WBC 6.62 (3.98-10.04) K/mm3 RBC 4.84 (3.98-5.22) M/mm3 Hgb 13.8 D (11.2-15.7) gm/dl Hct 44.3 (34.1-44.9) % MCV 91.5 (79.4-94.8) fl MCH 28.5 (25.6-32.2) pg MCHC 31.2 L (32.2-35.5) g/dl RDW Std Deviation 48.4 H (36.4-46.3) fL Plt Count 157 L (182-369) K/mm3 MPV 9.8 (9.4-12.3) fl Neut % (Auto) 67.0 (34.0-71.1) % Lymph % (Auto) 21.1 (19.3-51.7) % [place] % (Auto) 9.4 (4.7-12.5) % Eos % (Auto) 1.7 (0.7-5.8) Baso % (Auto) 0.3 (0.1-1.2) % Neut # (Auto) 4.44 (1.56-6.13) K/mm3 Lymph # (Auto) 1.40 (1.18-3.74) K/mm3 [place] # (Auto) 0.62 H (0.24-0.36) K/mm3 Eos # (Auto) 0.11 (0.04-0.36) K/mm3 Baso # (Auto) 0.02 (0.01-0.08) K/mm3 Sodium 142 (136-145) mEq/L Potassium 3.5 (3.5-5.1) mEq/L Chloride 106 (98-107) mEq/L Carbon Dioxide 28 (21-32) mEq/L Anion Gap 11.5 (5-15) BUN 9 (7-18) mg/dL Creatinine 0.9 (0.55-1.02) mg/dL Est Cr Clr Drug Dosing 70.01 mL/min Estimated GFR (MDRD) > 60 (>60) mL/min BUN/Creatinine Ratio 10.0 L (14-18) Glucose 101 (74-106) mg/dL Calcium 8.3 L (8.5-10.1) mg/dL Phosphorus 3.2 (2.6-4.7) mg/dL Magnesium 1.7 L (1.8-2.4) mg/dl Magdaleno Results Last 24 Hours: Microbiology 06/11/19 13:35 Shiga Toxin I - Final Stool / Feces NEGATIVE FOR SHIGA TOXIN 1 REFERENCE RANGE: NEGATIVE Shiga Toxin II - Final NEGATIVE FOR SHIGA TOXIN 2 REFERENCE RANGE: NEGATIVE 06/11/19 13:35 Stool for WBCs - Final Stool / Feces Med Orders - Current: Current Medications Acetaminophen (Tylenol) 650 mg PO Q4H PRN PRN Reason: Pain/Fever Last Admin: 06/12/19 16:44 Dose: 650 mg Bupropion HCl (Wellbutrin Xl) 300 mg PO DAILY [facility] Last Admin: 06/12/19 09:12 Dose: 300 mg Ceftriaxone Sodium 2 gm/ (Sodium Chloride) 100 mls @ 200 mls/hr IV Q24H JOSE Last Admin: 06/12/19 15:07 Dose: 200 mls/hr Ibuprofen (Motrin) 400 mg PO Q6H PRN PRN Reason: Pain (mild 1-3) Last Admin: 06/12/19 19:40 Dose: 400 mg Ketorolac Tromethamine (Toradol) 30 mg IV Q6H PRN PRN Reason: Pain (moderate 4-6) Stop: 06/16/19 21:00 Lorazepam (Ativan) 1 mg PO DAILY PRN PRN Reason: Anxiety Last Admin: 06/12/19 19:39 Dose: 1 mg Vortioxetine Hydrobromide [ Trintellix] 20 Mg Ptom 20 mg PO DAILY [facility] Last Admin: 06/12/19 18:11 Dose: 20 mg Ondansetron HCl (Zofran Odt) 4 mg PO Q6H PRN PRN Reason: nausea, able to take PO Ondansetron HCl (Zofran) 4 mg IV Q6H PRN PRN Reason: Nausea/Vomiting Last Admin: 06/12/19 14:42 Dose: 4 mg Phenazopyridine HCl (Urinary Pain Relief) 95 mg PO TIDPC [facility] Last Admin: 06/12/19 18:05 Dose: 95 mg Prazosin HCl (Minpress) 6 mg PO BEDTIME [facility] Last Admin: 06/12/19 19:36 Dose: 6 mg Simethicone (Simethicone) 80 mg PO TID PRN PRN Reason: GAS Last Admin: 06/12/19 19:40 Dose: 80 mg Discontinued Medications Acetaminophen (Tylenol) 650 mg PO Q4H PRN PRN Reason: Pain (Mild 1-3)/fever Hydromorphone HCl (Dilaudid) 0.5 mg IVPUSH ONETIME ONE Stop: 06/11/19 14:08 Last Admin: 06/11/19 14:10 Dose: 0.5 mg Hydromorphone HCl (Dilaudid) 1 mg IVPUSH ONETIME ONE Stop: 06/11/19 16:12 Last Admin: 06/11/19 16:22 Dose: 1 mg Dextrose/Lactated Ringer's (Dextrose 5%-Lactated Ringers) 1,000 mls @ 999 mls/ hr IV ASDIRECTED [facility] Last Admin: 06/11/19 12:40 Dose: 999 mls/hr Dextrose/Lactated Ringer's (Dextrose 5%-Lactated Ringers) 1,000 mls @ 999 mls/ hr IV ASDIRECTED [facility] Last Admin: 06/11/19 14:15 Dose: 999 mls/hr Sodium Chloride (Normal Saline) 1,000 mls @ 100 mls/hr IV ASDIRECTED [facility] Last Admin: 06/11/19 15:22 Dose: 100 mls/hr Lactated Ringer's (Ringers, Lactated) 1,000 mls @ 250 mls/hr IV ASDIRECTED [facility] Stop: 06/14/19 00:44 Last Admin: 06/12/19 08:29 Dose: 250 mls/hr Lactated Ringer's (Ringers, Lactated) 1,000 mls @ 999 mls/hr IV ONETIME ONE Stop: 06/11/19 21:45 Last Admin: 06/11/19 22:33 Dose: 999 mls/hr Magnesium Sulfate 4 gm/ Premix 100 mls @ 25 mls/hr IV ONETIME ONE Stop: 06/12/19 10:40 Last Admin: 06/12/19 10:50 Dose: 25 mls/hr Iopamidol (Isovue-300 (61%)) 100 ml IVPUSH ONETIME ONE Stop: 06/11/19 18:30 Last Admin: 06/11/19 18:40 Dose: 100 ml Ketorolac Tromethamine (Toradol) 30 mg IVPUSH ONETIME [facility] Last Admin: 06/11/19 13:20 Dose: 30 mg Metoclopramide HCl (Reglan) 7.5 mg IVPUSH ONETIME ONE Stop: 06/11/19 13:08 Last Admin: 06/11/19 13:22 Dose: 7.5 mg Morphine Sulfate (Morphine) 2 mg IVPUSH Q4H PRN PRN Reason: Pain (severe 7-10) Stop: 06/12/19 21:09 Vortioxetine Hydrobromide [ Trintellix] 20 Mg Ptom 20 mg PO DAILY [facility] Last Admin: 06/12/19 08:28 Dose: Not Given Ondansetron HCl (Zofran) 4 mg IVPUSH ONETIME ONE Stop: 06/11/19 16:12 Last Admin: 06/11/19 16:20 Dose: 4 mg Sepsis Event Note - Evaluation Sepsis Screening Result: No Definite Risk - Focused Exam Vital Signs: Vital Signs Temp Pulse Resp BP Pulse Ox 06/12/19 19:36 154/92 H 06/12/19 16:43 98.2 F 06/12/19 16:06 100.0 F 84 16 139/86 90 L 06/12/19 12:07 83 91 L 06/12/19 12:05 97.9 F 82 12 144/92 H 88 L Date Exam was Performed: 06/12/19 Time Exam was Performed: 21:40 - Problem List & Annotations (1) Pyelonephritis SNOMED Code(s): 78939978 Code(s): N12 - TUBULO-INTERSTITIAL NEPHRITIS, NOT SPCF ACUTE OR CHRONIC Status: Acute Current Visit: Yes (2) Bipolar disorder SNOMED Code(s): 03764234 Code(s): F31.9 - BIPOLAR DISORDER, UNSPECIFIED Status: Acute Current Visit: Yes (3) Anxiety SNOMED Code(s): 88606851 Code(s): F41.9 - ANXIETY DISORDER, UNSPECIFIED Status: Acute Current Visit: Yes (4) Depression SNOMED Code(s): 66920653 Code(s): F32.9 - MAJOR DEPRESSIVE DISORDER, SINGLE EPISODE, UNSPECIFIED Status: Acute Current Visit: Yes (5) Seizure disorder SNOMED Code(s): 047020091 Code(s): G40.909 - EPILEPSY, UNSP, NOT INTRACTABLE, WITHOUT STATUS EPILEPTICUS Status: Acute Current Visit: Yes (6) Chronic migraine SNOMED Code(s): 812637100 Code(s): G43.709 - CHRONIC MIGRAINE W/O AURA, NOT INTRACTABLE, W/O STAT MIGR Status: Acute Current Visit: Yes (7) Intractable nausea and vomiting SNOMED Code(s): 797884640 Code(s): R11.2 - NAUSEA WITH VOMITING, UNSPECIFIED Status: Acute Current Visit: Yes (8) Headache SNOMED Code(s): 67132946 Code(s): R51 - HEADACHE Status: Acute Current Visit: No Qualifiers: Headache type: unspecified Headache chronicity pattern: acute headache Intractability: not intractable Qualified Code(s): R51 - Headache (9) PTSD (post-traumatic stress disorder) SNOMED Code(s): 65834587 Code(s): F43.10 - POST-TRAUMATIC STRESS DISORDER, UNSPECIFIED Status: Acute Current Visit: No (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 Status: Acute Current Visit: Yes - My Orders Last 24 Hours: My Active Orders 06/11/19 20:45 Oxygen Therapy [RC] PRN VTE/DVT Education [RC] PER UNIT ROUTINE Vital Signs [RC] Q4HR Resuscitation Status Routine 06/11/19 20:46 Ambulate [RC] PER UNIT ROUTINE Intake and Output [RC] 04,16 06/11/19 20:52 Acetaminophen [Tylenol] 650 mg PO Q4H PRN 06/11/19 20:59 Ibuprofen [Motrin] 400 mg PO Q6H PRN Ketorolac [Toradol] 30 mg IV Q6H PRN Ondansetron [Zofran ODT] 4 mg PO Q6H PRN Ondansetron [Zofran] 4 mg IV Q6H PRN 06/11/19 21:11 LORazepam [Ativan] 1 mg PO DAILY PRN 06/11/19 22:30 Prazosin [Minpress] 6 mg PO BEDTIME 06/12/19 01:03 Strain Urine [RC] 06/12/19 09:00 Phenazopyridine [Urinary Pain Relief] 95 mg PO TIDPC buPROPion [Wellbutrin XL] 300 mg PO DAILY 06/12/19 10:40 Antiembolic Devices [RC] PER UNIT ROUTINE ALBERTO Hose [Antiembolic Hose] [OM.PC] Routine 06/12/19 14:18 Simethicone 80 mg PO TID PRN 06/12/19 18:15 Vortioxetine Hydrobromide [Trintellix] 20 mg PO DAILY 06/12/19 Lunch Clear Liquid Diet [DIET] - Plan Plan:: Pyelonephritis Intractable nausea and vomiting Worsening flank pain since Sunday but with urinary symptoms for about 1 week Pathologic UA + Left CVA tenderness Afebrile but tachycardic on admission with leukocytosis Normal lactic acid PLAN - Start ceftriaxone - Monitor temperature, if febrile blood cultures - Strain urine - HbA1c - NPO with advancement of diet as tolerated - PRN zofran - Pain control - Monitor for signs of sepsis Bipolar disorder Anxiety Depression Nightmare disorder PTSD Last psychiatric admission for suicidal ideation in summer 2018 Denies current suicidal or homicidal ideation Denies hallucinations On Trintellix, Wellbutrin and prazosin PLAN - Continue home medications Chronic migraine No abortive or long acting therapies at home PLAN - As needed Tylenol or ibuprofen PROPHYLAXIS DVT- Lovenox GI-not indicated CODE STATUS: FULL CODE DISPOSITION: Patient will be admitted to the medical floor for IV antibiotic therapy as well as pain control with monitorization for fever.
[2019-06-13] MEDS: Prazosin 1 MG Cap PO SCH ×2 (06:27→21:11)
[2019-06-13] MEDS: Acetaminophen 325 MG Tab PO PRN ×2 (06:27→12:43)
[2019-06-13] MEDS: Phenazopyridine 95 MG Tab PO SCH ×3 (08:47→18:38)
[2019-06-13] MEDS: buPROPion 150 MG Tab.ER PO SCH (08:48)
[2019-06-13] MEDS: VORTIOXETINE HYDROBROMIDE 20 MG PO SCH (08:51)
[2019-06-13] MEDS: Potassium Chloride 20 MEQ Tab.ER PO SCH ×2 (12:22→21:15)
--- NOTE | 2019-06-13 13:48 | PCM.PN ---
- General Info Date of Service: 06/13/19 Admission Dx/Problem (Free Text): Admission Diagnosis/Problem Admission Diagnosis/Problem Pyelonephritis Subjective Update: In to see Yasmine. She reports she has been up ambulating and feels better today than yesterday. She reports LUQ abdominal pain with full liquid diet. She will continue to work with this advance as tolerated. No other patient concerns. Functional Status: Reports: Pain Controlled, Tolerating Diet, Ambulating, Urinating. Denies: New Symptoms - Review of Systems General: Reports: No Symptoms, Weakness, Fatigue. Denies: Fever, Malaise, Chills HEENT: Reports: No Symptoms. Denies: Headaches, Sore Throat Pulmonary: Reports: No Symptoms. Denies: Shortness of Breath, Cough, Sputum, Wheezing Cardiovascular: Reports: No Symptoms. Denies: Palpitations Gastrointestinal: Reports: Abdominal Pain (Mild LUQ abdominal pain eariler in day which has improved to resolved now. ). Denies: Constipation, Diarrhea, Nausea, Vomiting Genitourinary: Reports: No Symptoms. Denies: Pain Musculoskeletal: Reports: No Symptoms Skin: Reports: No Symptoms. Denies: Cyanosis Neurological: Reports: No Symptoms. Denies: Confusion, Difficulty Walking, Gait Disturbance Psychiatric: Reports: No Symptoms - Patient Data Vitals - Most Recent: Last Vital Signs Temp 97.9 F 06/13/19 12:43 Pulse 82 06/13/19 12:28 Resp 16 06/13/19 12:28 BP 152/93 H 06/13/19 12:28 Pulse Ox 95 06/13/19 12:28 Orthostatic Blood Pressure [ 114/58 Standing] Orthostatic Blood Pressure [ 124/65 Sitting] Orthostatic Blood Pressure [ 106/72 Supine] Weight - Most Recent: 333 lb 12.8 oz I&O - Last 24 Hours: Intake & Output 06/12/19 06/13/19 06/13/19 22:59 06:59 14:59 Intake Total 2358 1800 440 Output Total 1200 2475 Balance 1158 -675 440 Lab Results Last 24 Hours: Laboratory Results - last 24 hr 06/13/19 Range/Units 08:57 Sodium 142 (136-145) mEq/L Potassium 3.3 L (3.5-5.1) mEq/L Chloride 104 (98-107) mEq/L Carbon Dioxide 29 (21-32) mEq/L Anion Gap 12.3 (5-15) BUN 5 L (7-18) mg/dL Creatinine 1.0 (0.55-1.02) mg/dL Est Cr Clr Drug Dosing 63.01 mL/min Estimated GFR (MDRD) 59 (>60) mL/min BUN/Creatinine Ratio 5.0 L (14-18) Glucose 127 H (74-106) mg/dL Calcium 8.4 L (8.5-10.1) mg/dL Phosphorus 3.1 (2.6-4.7) mg/dL Magnesium 2.3 (1.8-2.4) mg/dl Magdaleno Results Last 24 Hours: Microbiology 06/11/19 Unknown Urine Culture - Preliminary Urine, Bladder Gram Positive Cocci 06/11/19 13:35 Shiga Toxin I - Final Stool / Feces NEGATIVE FOR SHIGA TOXIN 1 REFERENCE RANGE: NEGATIVE Shiga Toxin II - Final NEGATIVE FOR SHIGA TOXIN 2 REFERENCE RANGE: NEGATIVE Med Orders - Current: Current Medications Acetaminophen (Tylenol) 650 mg PO Q4H PRN PRN Reason: Pain/Fever Last Admin: 06/13/19 12:43 Dose: 650 mg Bupropion HCl (Wellbutrin Xl) 300 mg PO DAILY [facility] Last Admin: 06/13/19 08:48 Dose: 300 mg Ceftriaxone Sodium 2 gm/ (Sodium Chloride) 100 mls @ 200 mls/hr IV Q24H [facility] Last Admin: 06/12/19 15:07 Dose: 200 mls/hr Ibuprofen (Motrin) 400 mg PO Q6H PRN PRN Reason: Pain (mild 1-3) Last Admin: 06/12/19 19:40 Dose: 400 mg Ketorolac Tromethamine (Toradol) 30 mg IV Q6H PRN PRN Reason: Pain (moderate 4-6) Stop: 06/16/19 21:00 Last Admin: 06/12/19 22:41 Dose: 30 mg Lorazepam (Ativan) 1 mg PO DAILY PRN PRN Reason: Anxiety Last Admin: 06/12/19 19:39 Dose: 1 mg Vortioxetine Hydrobromide [ Trintellix] 20 Mg Ptom 20 mg PO DAILY [facility] Last Admin: 06/13/19 08:51 Dose: 20 mg Ondansetron HCl (Zofran Odt) 4 mg PO Q6H PRN PRN Reason: nausea, able to take PO Last Admin: 06/12/19 22:44 Dose: 4 mg Ondansetron HCl (Zofran) 4 mg IV Q6H PRN PRN Reason: Nausea/Vomiting Last Admin: 06/12/19 14:42 Dose: 4 mg Phenazopyridine HCl (Urinary Pain Relief) 95 mg PO TIDPC [facility] Last Admin: 06/13/19 12:22 Dose: 95 mg Potassium Chloride (Klor-Con M20) 40 meq PO BID [facility] Stop: 06/13/19 21:01 Last Admin: 06/13/19 12:22 Dose: 40 meq Prazosin HCl (Minpress) 6 mg PO BEDTIME [facility] Last Admin: 06/13/19 06:27 Dose: Not Given Simethicone (Simethicone) 80 mg PO TID PRN PRN Reason: GAS Last Admin: 06/12/19 19:40 Dose: 80 mg Discontinued Medications Acetaminophen (Tylenol) 650 mg PO Q4H PRN PRN Reason: Pain (Mild 1-3)/fever Hydromorphone HCl (Dilaudid) 0.5 mg IVPUSH ONETIME ONE Stop: 06/11/19 14:08 Last Admin: 06/11/19 14:10 Dose: 0.5 mg Hydromorphone HCl (Dilaudid) 1 mg IVPUSH ONETIME ONE Stop: 06/11/19 16:12 Last Admin: 06/11/19 16:22 Dose: 1 mg Dextrose/Lactated Ringer's (Dextrose 5%-Lactated Ringers) 1,000 mls @ 999 mls/ hr IV ASDIRECTED [facility] Last Admin: 06/11/19 12:40 Dose: 999 mls/hr Dextrose/Lactated Ringer's (Dextrose 5%-Lactated Ringers) 1,000 mls @ 999 mls/ hr IV ASDIRECTED [facility] Last Admin: 06/11/19 14:15 Dose: 999 mls/hr Sodium Chloride (Normal Saline) 1,000 mls @ 100 mls/hr IV ASDIRECTED [facility] Last Admin: 06/11/19 15:22 Dose: 100 mls/hr Lactated Ringer's (Ringers, Lactated) 1,000 mls @ 250 mls/hr IV ASDIRECTED [facility] Stop: 06/14/19 00:44 Last Admin: 06/12/19 08:29 Dose: 250 mls/hr Lactated Ringer's (Ringers, Lactated) 1,000 mls @ 999 mls/hr IV ONETIME ONE Stop: 06/11/19 21:45 Last Admin: 06/11/19 22:33 Dose: 999 mls/hr Magnesium Sulfate 4 gm/ Premix 100 mls @ 25 mls/hr IV ONETIME ONE Stop: 06/12/19 10:40 Last Admin: 06/12/19 10:50 Dose: 25 mls/hr Iopamidol (Isovue-300 (61%)) 100 ml IVPUSH ONETIME ONE Stop: 06/11/19 18:30 Last Admin: 06/11/19 18:40 Dose: 100 ml Ketorolac Tromethamine (Toradol) 30 mg IVPUSH ONETIME [facility] Last Admin: 06/11/19 13:20 Dose: 30 mg Metoclopramide HCl (Reglan) 7.5 mg IVPUSH ONETIME ONE Stop: 06/11/19 13:08 Last Admin: 06/11/19 13:22 Dose: 7.5 mg Morphine Sulfate (Morphine) 2 mg IVPUSH Q4H PRN PRN Reason: Pain (severe 7-10) Stop: 06/12/19 21:09 Vortioxetine Hydrobromide [ Trintellix] 20 Mg Ptom 20 mg PO DAILY [facility] Last Admin: 06/12/19 08:28 Dose: Not Given Ondansetron HCl (Zofran) 4 mg IVPUSH ONETIME ONE Stop: 06/11/19 16:12 Last Admin: 06/11/19 16:20 Dose: 4 mg - Exam Quality Assessment: DVT Prophylaxis. No: Supplemental Oxygen General: Alert, Oriented, Cooperative, No Acute Distress HEENT: Pupils Equal, Mucous Membr. Moist/[employer] Neck: Supple, Trachea Midline Lungs: Clear to Auscultation, Normal Respiratory Effort, Decreased Breath Sounds Cardiovascular: Regular Rate, Regular Rhythm GI/Abdominal Exam: Normal Bowel Sounds, Soft, Non-Tender, No Distention (Female) Exam: Deferred Back Exam: Normal Inspection, Full Range of Motion, CVA Tenderness (L). No: CVA Tenderness (R) Extremities: Normal Inspection, Normal Range of Motion, Non-Tender, Normal Capillary Refill Skin: Warm, Dry, Intact Neurological: No New Focal Deficit Psy/Mental Status: Alert, Normal Affect, Normal Mood Sepsis Event Note - Evaluation Sepsis Screening Result: No Definite Risk - Focused Exam Vital Signs: Vital Signs Temp Pulse Resp BP Pulse Ox 06/13/19 12:43 97.9 F 06/13/19 12:28 97.9 F 82 16 152/93 H 95 06/13/19 08:54 97.5 F 78 16 140/77 92 L 06/13/19 06:29 97.9 F 80 19 147/84 H 93 L Date Exam was Performed: 06/13/19 Time Exam was Performed: 13:57 - Problem List & Annotations (1) Anxiety SNOMED Code(s): 23574787 Code(s): F41.9 - ANXIETY DISORDER, UNSPECIFIED Status: Chronic Priority: Medium Current Visit: Yes (2) Bipolar disorder SNOMED Code(s): 63811738 Code(s): F31.9 - BIPOLAR DISORDER, UNSPECIFIED Status: Chronic Priority: Medium Current Visit: Yes Qualifiers: Active/Remission status: remission status unspecified Qualified Code(s): F31.9 - Bipolar disorder, unspecified (3) Chronic migraine SNOMED Code(s): 003906294 Code(s): G43.709 - CHRONIC MIGRAINE W/O AURA, NOT INTRACTABLE, W/O STAT MIGR Status: Chronic Priority: Medium Current Visit: No (4) Depression SNOMED Code(s): 63738375 Code(s): F32.9 - MAJOR DEPRESSIVE DISORDER, SINGLE EPISODE, UNSPECIFIED Status: Chronic Priority: Low Current Visit: No Qualifiers: Depression Type: unspecified Qualified Code(s): F32.9 - Major depressive disorder, single episode, unspecified (5) Intractable nausea and vomiting SNOMED Code(s): 908640763 Code(s): R11.2 - NAUSEA WITH VOMITING, UNSPECIFIED Status: Resolved Priority: High Current Visit: Yes (6) Nightmare disorder Status: Chronic Priority: Low Current Visit: No (7) Pyelonephritis SNOMED Code(s): 78939060 Code(s): N12 - TUBULO-INTERSTITIAL NEPHRITIS, NOT SPCF ACUTE OR CHRONIC Status: Acute Priority: High Current Visit: Yes (8) Seizure disorder SNOMED Code(s): 372267163 Code(s): G40.909 - EPILEPSY, UNSP, NOT INTRACTABLE, WITHOUT STATUS EPILEPTICUS Status: Chronic Priority: Medium Current Visit: No (9) Headache SNOMED Code(s): 35518217 Code(s): R51 - HEADACHE Status: Chronic Priority: Medium Current Visit : No Qualifiers: Headache type: unspecified Headache chronicity pattern: acute headache Intractability: not intractable Qualified Code(s): R51 - Headache (10) PTSD (post-traumatic stress disorder) SNOMED Code(s): 96746094 Code(s): F43.10 - POST-TRAUMATIC STRESS DISORDER, UNSPECIFIED Status: Chronic Priority: Medium Current Visit: No (11) Hypokalemia SNOMED Code(s): 36763673 Code(s): E87.6 - HYPOKALEMIA Status: Acute Priority: High Current Visit : Yes - Problem List Review Problem List Initiated/Reviewed/Updated: Yes - My Orders Last 24 Hours: My Active Orders 06/13/19 13:41 CULTURE URINE [RM] Stat - Plan Plan:: Pyelonephritis Intractable nausea and vomiting - resolved Hypokalemia Worsening flank pain since Sunday but with urinary symptoms for about 1 week Pathologic UA + Left CVA tenderness Afebrile but tachycardic on admission with leukocytosis Normal lactic acid Hgb A1C 5.9 PLAN - Continue ceftriaxone - Monitor temperature, if febrile blood cultures - Strain urine - Advancement of diet as tolerated - Awaiting urine cultures - PRN zofran - Pain control - Monitor for signs of sepsis - Supplement PO Potassium Bipolar disorder Anxiety Depression Nightmare disorder PTSD Last psychiatric admission for suicidal ideation in summer 2018 Denies current suicidal or homicidal ideation Denies hallucinations On Trintellix, Wellbutrin and prazosin PLAN - Continue home medications Chronic migraine No abortive or long acting therapies at home PLAN - As needed Tylenol or ibuprofen PROPHYLAXIS DVT- Lovenox GI-not indicated CODE STATUS: FULL CODE DISPOSITION: Patient will be admitted to the medical floor for IV antibiotic therapy as well as pain control with monitorization for fever.
[2019-06-13] MEDS ORDERED: cefTRIAXone 2 GM Vial IM SCH (17:00)
[2019-06-13] MEDS: cefTRIAXone 2 GM in Sodium Chloride 0.9% 100 ML IV SCH (17:24)
[2019-06-13] MEDS: LORazepam 1 MG Tab PO PRN (21:23)
[2019-06-13] MEDS: Ibuprofen 400 MG Tab PO PRN (23:14)
[2019-06-14] MEDS: buPROPion 150 MG Tab.ER PO SCH (08:16)
[2019-06-14] MEDS: Phenazopyridine 95 MG Tab PO SCH ×2 (08:16→12:14)
[2019-06-14] MEDS: VORTIOXETINE HYDROBROMIDE 20 MG PO SCH (08:16)
[2019-06-14 08:46] VITALS: BP 123/59; PULSE 73
[2019-06-14] MEDS: Acetaminophen 325 MG Tab PO PRN (11:02)
[2019-06-14] MEDS: LORazepam 1 MG Tab PO PRN (11:02)
--- NOTE | 2019-06-14 13:02 | PCM.DCSUM1 ---
Discharge Summary - Hospital Course Diagnosis: Stroke: No - Discharge Data Discharge Disposition: Home, Self-Care 01 Condition: Good - Referral to Home Health Primary Care Physician: AISHA Gasca - Discharge Diagnosis/Problem(s) (1) Pyelonephritis SNOMED Code(s): 32694432 ICD Code: N12 - TUBULO-INTERSTITIAL NEPHRITIS, NOT SPCF ACUTE OR CHRONIC Status: Acute Priority: High Current Visit: Yes (2) Bipolar disorder SNOMED Code(s): 82721444 ICD Code: F31.9 - BIPOLAR DISORDER, UNSPECIFIED Status: Chronic Priority : Medium Current Visit: Yes Qualifiers: Active/Remission status: remission status unspecified Qualified Code(s): F31.9 - Bipolar disorder, unspecified (3) Anxiety SNOMED Code(s): 68571426 ICD Code: F41.9 - ANXIETY DISORDER, UNSPECIFIED Status: Chronic Priority : Medium Current Visit: Yes (4) Depression SNOMED Code(s): 57080213 ICD Code: F32.9 - MAJOR DEPRESSIVE DISORDER, SINGLE EPISODE, UNSPECIFIED Status: Chronic Priority: Low Current Visit: No Qualifiers: Depression Type: unspecified Qualified Code(s): F32.9 - Major depressive disorder, single episode, unspecified (5) Seizure disorder SNOMED Code(s): 085695098 ICD Code: G40.909 - EPILEPSY, UNSP, NOT INTRACTABLE, WITHOUT STATUS EPILEPTICUS Status: Chronic Priority: Medium Current Visit: No (6) Chronic migraine SNOMED Code(s): 644199151 ICD Code: G43.709 - CHRONIC MIGRAINE W/O AURA, NOT INTRACTABLE, W/O STAT MIGR Status: Chronic Priority: Medium Current Visit: No (7) Intractable nausea and vomiting SNOMED Code(s): 074909405 ICD Code: R11.2 - NAUSEA WITH VOMITING, UNSPECIFIED Status: Resolved Priority: High Current Visit: Yes (8) Headache SNOMED Code(s): 05306085 ICD Code: R51 - HEADACHE Status: Chronic Priority: Medium Current Visit : No Qualifiers: Headache type: unspecified Headache chronicity pattern: acute headache Intractability: not intractable Qualified Code(s): R51 - Headache (9) PTSD (post-traumatic stress disorder) SNOMED Code(s): 42754700 ICD Code: F43.10 - POST-TRAUMATIC STRESS DISORDER, UNSPECIFIED Status: Chronic Priority: Medium Current Visit: No (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 Status: Chronic Priority: Low Current Visit: No (11) Campylobacter diarrhea SNOMED Code(s): 29606819 ICD Code: A04.5 - CAMPYLOBACTER ENTERITIS Status: Acute Current Visit: Yes - Discharge Plan *PRESCRIPTION DRUG MONITORING PROGRAM REVIEWED*: Not Applicable *COPY OF PRESCRIPTION DRUG MONITORING REPORT IN PATIENT BALJEET: Not Applicable Prescriptions/Med Rec: Azithromycin 500 mg PO DAILY #5 tablet LORazepam [Ativan] 1 mg PO DAILY PRN #5 tablet PRN Reason: Anxiety Ondansetron [Zofran ODT] 4 mg PO Q6H PRN #14 tab.dis PRN Reason: nausea, able to take PO Phenazopyridine [Urinary Pain Relief] 95 mg PO TIDPC #9 tablet Sulfamethoxazole/Trimethoprim [Septra DS] 1 tab PO Q12H #10 tablet Home Medications: Home Meds Prazosin HCl [Prazosin] 6 mg PO BEDTIME 12/31/18 [History] Vortioxetine Hydrobromide [Trintellix] 20 mg PO DAILY 12/31/18 [History] Ondansetron [Zofran ODT] 4 mg PO Q6H PRN #10 tab.dis 06/05/19 [Rx] LORazepam [Lorazepam] 0.25 - 0.5 mg PO TID PRN 06/12/19 [History] buPROPion HCL [Bupropion Xl] 300 mg PO DAILY 06/12/19 [History] Azithromycin 500 mg PO DAILY #5 tablet 06/14/19 [Rx] LORazepam [Ativan] 1 mg PO DAILY PRN #5 tablet 06/14/19 [Rx] Ondansetron [Zofran ODT] 4 mg PO Q6H PRN #14 tab.dis 06/14/19 [Rx] Phenazopyridine [Urinary Pain Relief] 95 mg PO TIDPC #9 tablet 06/14/19 [Rx] Sulfamethoxazole/Trimethoprim [Septra DS] 1 tab PO Q12H #10 tablet 06/14/19 [Rx] Patient Handouts: Pyelonephritis, Adult, [id number], Sepsis, Adult Forms: ED Department Discharge Referrals: Evy Matthews PA-C [Primary Care Provider] - - Patient Data Vitals - Most Recent: Last Vital Signs Temp 97.7 F 06/14/19 07:39 Pulse 73 06/14/19 07:39 Resp 16 06/14/19 07:39 BP 123/59 L 06/14/19 07:39 Pulse Ox 91 L 06/14/19 07:39 Orthostatic Blood Pressure [ 114/58 Standing] Orthostatic Blood Pressure [ 124/65 Sitting] Orthostatic Blood Pressure [ 106/72 Supine] Weight - Most Recent: 150.819 kg I&O - Last 24 hours: Intake & Output 06/13/19 06/14/19 06/14/19 22:59 06:59 14:59 Intake Total 500 800 300 Output Total 1300 Balance 500 -500 300 Lab Results - Last 24 hrs: Laboratory Results - last 24 hr 06/14/19 06/14/19 Range/Units 05:18 05:18 WBC 5.64 (3.98-10.04) K/mm3 RBC 4.81 (3.98-5.22) M/mm3 Hgb 13.7 (11.2-15.7) gm/dl Hct 43.6 (34.1-44.9) % MCV 90.6 (79.4-94.8) fl MCH 28.5 (25.6-32.2) pg MCHC 31.4 L (32.2-35.5) g/dl RDW Std Deviation 47.6 H (36.4-46.3) fL Plt Count 204 (182-369) K/mm3 MPV 9.7 (9.4-12.3) fl Neut % (Auto) 54.1 (34.0-71.1) % Lymph % (Auto) 28.9 (19.3-51.7) % Phillips % (Auto) 10.6 (4.7-12.5) % Eos % (Auto) 4.3 (0.7-5.8) Baso % (Auto) 0.9 (0.1-1.2) % Neut # (Auto) 3.05 (1.56-6.13) K/mm3 Lymph # (Auto) 1.63 (1.18-3.74) K/mm3 Phillips # (Auto) 0.60 H (0.24-0.36) K/mm3 Eos # (Auto) 0.24 (0.04-0.36) K/mm3 Baso # (Auto) 0.05 (0.01-0.08) K/mm3 Sodium 144 (136-145) mEq/L Potassium 3.4 L (3.5-5.1) mEq/L Chloride 107 (98-107) mEq/L Carbon Dioxide 31 (21-32) mEq/L Anion Gap 9.4 (5-15) BUN 5 L (7-18) mg/dL Creatinine 0.9 (0.55-1.02) mg/dL Est Cr Clr Drug Dosing 70.01 mL/min Estimated GFR (MDRD) > 60 (>60) mL/min BUN/Creatinine Ratio 5.6 L (14-18) Glucose 97 (74-106) mg/dL Calcium 8.7 (8.5-10.1) mg/dL TAMARA Results - Last 24 hrs: Microbiology 06/11/19 13:35 Stool Culture - Preliminary Stool / Feces Campylobacter Species Shiga Toxin I - Final NEGATIVE FOR SHIGA TOXIN 1 REFERENCE RANGE: NEGATIVE Shiga Toxin II - Final NEGATIVE FOR SHIGA TOXIN 2 REFERENCE RANGE: NEGATIVE 06/11/19 Unknown Urine Culture - Preliminary Urine, Bladder Streptococcus Anginosus Group Med Orders - Current: Current Medications Acetaminophen (Tylenol) 650 mg PO Q4H PRN PRN Reason: Pain/Fever Last Admin: 06/14/19 11:02 Dose: 650 mg Bupropion HCl (Wellbutrin Xl) 300 mg PO DAILY [facility] Last Admin: 06/14/19 08:16 Dose: 300 mg Ibuprofen (Motrin) 400 mg PO Q6H PRN PRN Reason: Pain (mild 1-3) Last Admin: 06/13/19 23:14 Dose: 400 mg Ketorolac Tromethamine (Toradol) 30 mg IV Q6H PRN PRN Reason: Pain (moderate 4-6) Stop: 06/16/19 21:00 Last Admin: 06/12/19 22:41 Dose: 30 mg Lorazepam (Ativan) 1 mg PO DAILY PRN PRN Reason: Anxiety Last Admin: 06/14/19 11:02 Dose: 1 mg Vortioxetine Hydrobromide [ Trintellix] 20 Mg Ptom 20 mg PO DAILY [facility] Last Admin: 06/14/19 08:16 Dose: 20 mg Ondansetron HCl (Zofran Odt) 4 mg PO Q6H PRN PRN Reason: nausea, able to take PO Last Admin: 06/12/19 22:44 Dose: 4 mg Ondansetron HCl (Zofran) 4 mg IV Q6H PRN PRN Reason: Nausea/Vomiting Last Admin: 06/12/19 14:42 Dose: 4 mg Phenazopyridine HCl (Urinary Pain Relief) 95 mg PO TIDPC [facility] Last Admin: 06/14/19 12:14 Dose: 95 mg Prazosin HCl (Minpress) 6 mg PO BEDTIME [facility] Last Admin: 06/13/19 21:11 Dose: 6 mg Simethicone (Simethicone) 80 mg PO TID PRN PRN Reason: GAS Last Admin: 06/12/19 19:40 Dose: 80 mg Trimethoprim/Sulfamethoxazole (Septra Ds) 1 tab PO Q12H [facility] Discontinued Medications Acetaminophen (Tylenol) 650 mg PO Q4H PRN PRN Reason: Pain (Mild 1-3)/fever Ceftriaxone Sodium (Rocephin) 2 gm IM Q24H [facility] Last Admin: 06/13/19 17:37 Dose: 2 gm Hydromorphone HCl (Dilaudid) 0.5 mg IVPUSH ONETIME ONE Stop: 06/11/19 14:08 Last Admin: 06/11/19 14:10 Dose: 0.5 mg Hydromorphone HCl (Dilaudid) 1 mg IVPUSH ONETIME ONE Stop: 06/11/19 16:12 Last Admin: 06/11/19 16:22 Dose: 1 mg Dextrose/Lactated Ringer's (Dextrose 5%-Lactated Ringers) 1,000 mls @ 999 mls/ hr IV ASDIRECTED [facility] Last Admin: 06/11/19 12:40 Dose: 999 mls/hr Dextrose/Lactated Ringer's (Dextrose 5%-Lactated Ringers) 1,000 mls @ 999 mls/ hr IV ASDIRECTED [facility] Last Admin: 06/11/19 14:15 Dose: 999 mls/hr Ceftriaxone Sodium 2 gm/ (Sodium Chloride) 100 mls @ 200 mls/hr IV Q24H [facility] Last Admin: 06/13/19 17:24 Dose: Not Given Sodium Chloride (Normal Saline) 1,000 mls @ 100 mls/hr IV ASDIRECTED [facility] Last Admin: 06/11/19 15:22 Dose: 100 mls/hr Lactated Ringer's (Ringers, Lactated) 1,000 mls @ 250 mls/hr IV ASDIRECTED [facility] Stop: 06/14/19 00:44 Last Admin: 06/12/19 08:29 Dose: 250 mls/hr Lactated Ringer's (Ringers, Lactated) 1,000 mls @ 999 mls/hr IV ONETIME ONE Stop: 06/11/19 21:45 Last Admin: 06/11/19 22:33 Dose: 999 mls/hr Magnesium Sulfate 4 gm/ Premix 100 mls @ 25 mls/hr IV ONETIME ONE Stop: 06/12/19 10:40 Last Admin: 06/12/19 10:50 Dose: 25 mls/hr Iopamidol (Isovue-300 (61%)) 100 ml IVPUSH ONETIME ONE Stop: 06/11/19 18:30 Last Admin: 06/11/19 18:40 Dose: 100 ml Ketorolac Tromethamine (Toradol) 30 mg IVPUSH ONETIME [facility] Last Admin: 06/11/19 13:20 Dose: 30 mg Metoclopramide HCl (Reglan) 7.5 mg IVPUSH ONETIME ONE Stop: 06/11/19 13:08 Last Admin: 06/11/19 13:22 Dose: 7.5 mg Morphine Sulfate (Morphine) 2 mg IVPUSH Q4H PRN PRN Reason: Pain (severe 7-10) Stop: 06/12/19 21:09 Vortioxetine Hydrobromide [ Trintellix] 20 Mg Ptom 20 mg PO DAILY [facility] Last Admin: 06/12/19 08:28 Dose: Not Given Ondansetron HCl (Zofran) 4 mg IVPUSH ONETIME ONE Stop: 06/11/19 16:12 Last Admin: 06/11/19 16:20 Dose: 4 mg Potassium Chloride (Klor-Con M20) 40 meq PO BID [facility] Stop: 06/13/19 21:01 Last Admin: 06/13/19 21:15 Dose: 40 meq
[2019-06-14] MEDS ORDERED: Sulfamethoxazole/Trimethoprim 800-160 MG Tab PO SCH (18:00)
== END 2019-06-14 13:45 | disposition home or self-care (01) | DRG 248 ==
LOC: JD.ED 11:56 → JD.MS 16:14
PROVIDERS: ADMIT Internal Medicine; ATTEND Internal Medicine
DX: A04.5 Campylobacter enteritis (principal); N10 Acute pyelonephritis; F31.9 Bipolar disorder, unspecified; F41.9 Anxiety disorder, unspecified; F60.3 Borderline personality disorder; H54.7 Unspecified visual loss; K21.9 Gastro-esophageal reflux disease without esophagitis; E66.9 Obesity, unspecified; G40.909 Epilepsy, unspecified, not intractable, without status epilepticus; G43.709 Chronic migraine without aura, not intractable, without status migrainosus; E87.6 Hypokalemia; F51.5 Nightmare disorder; F43.10 Post-traumatic stress disorder, unspecified; Z91.018 Allergy to other foods; Z79.899 Other long term (current) drug therapy; Z90.49 Acquired absence of other specified parts of digestive tract; Z90.710 Acquired absence of both cervix and uterus; Z98.890 Other specified postprocedural states; Z68.43 Body mass index [BMI] 50.0-59.9, adult
CPT/HCPCS: 36415; 74177; 74177-26; 80048; 80053; 81001; 82009; 83036; 83605; 83690; 83735; 83930; 84100; 85025; 86140; 87046; 87086; 87184; 87804; 89055; 94760; 96361; 96365; 96375; 96376; 99285; 99285-25; A9270-GY; J0696; J1170; J1885; J2405; J2765; J3475; J7030; J7050; J7120; J7121; Q9967